=== PATIENT | female | born 1995 | race Caucasian/White ===

== ENCOUNTER → 2018-01-07 11:45 | Outpatient (CLI) | payer OTHER, SELFPAY ==
[2018-01-11 10:38] LABS: HPV Reflexed? NOT INDICATED
== END ==
PROVIDERS: Visit Provider Obstetrics & Gynecology
DX: Z12.4 Encounter for screening for malignant neoplasm of cervix (principal)
CPT/HCPCS: 88175; G0145

== ENCOUNTER → 2020-07-12 13:27 | Outpatient (CLI) | payer OTHER, SELFPAY ==
[2020-07-12 14:14] LABS: hCG Titer Quant., Serum 267 mIU/mL (1-3)
== END ==
PROVIDERS: PCP Family Medicine; Referring Provider Obstetrics & Gynecology; Visit Provider Obstetrics & Gynecology
DX: O02.1 Missed abortion (principal); Z3A.00 Weeks of gestation of pregnancy not specified
CPT/HCPCS: 36415; 84702; 86850; 86900; 86901

== ENCOUNTER → 2020-07-13 15:54 | Outpatient (CLI) | payer OTHER, SELFPAY ==
[2020-07-13 15:48] VITALS: BMI 25.6
[2020-07-13 16:45] LABS: hCG Titer Quant., Serum 212 mIU/mL (1-3)
== END ==
PROVIDERS: Nurse Practitioner Women's Health; PCP Family Medicine; Referring Provider Obstetrics & Gynecology; Visit Provider Obstetrics & Gynecology
DX: O20.0 Threatened abortion (principal); Z3A.00 Weeks of gestation of pregnancy not specified
CPT/HCPCS: 36415; 84702

== ENCOUNTER → 2020-07-15 09:55 | Outpatient (CLI) | payer OTHER, SELFPAY ==
[2020-07-13 15:48] VITALS: BMI 25.6
[2020-07-15 10:15] LABS: Absolute Lymphocyte Count 1.02 X10^3/uL (0.83-4.51); Absolute Neutrophil Count 5.2 X10^3/uL (2.0-7.7); Basophil# 0.02 X10^3/uL; Basophil% 0.3 % (0-1); Eosinophil# 0.07 X10^3/uL; Hematocrit 39.2 % (37-47); Hemoglobin 12.9 g/dL (12.0-15.0); Lymphocyte # 1.02 X10^3/ul (4.0); Lymphocyte % 14.7 % (19-41); Mean Corp Hgb Conc 32.9 g/dL (32-36); Mean Corpuscular Hgb 29.9 pg (27.0-32.0); Mean Platelet Vol. 9.5 fl (6.2-12.0); Monocyte# 0.59 X10^3/uL; Monocyte% 8.5 % (0-10); NRBC Flagged by Analyzer 0 % (0-5); Neutrophil # 5.21 X10^3/uL (2.7-7.7); Neutrophil % 75.4 % (47-70); Platelet Count 182 K/mm3 (150-450); RBC Distribution Width CV 12.1 % (11.6-14.6); RBC Distribution Width SD 40.7 fl (35.1-43.9); Red Blood Count 4.31 M/mm3 (4.2-5.4); White Blood Count 6.9 K/mm3 (4.4-11.0)
[2020-07-15 10:57] LABS: hCG Titer Quant., Serum 74 mIU/mL (1-3)
== END ==
PROVIDERS: Obstetrics & Gynecology; PCP Family Medicine; Referring Provider Nurse Practitioner Women's Health; Visit Provider Nurse Practitioner Women's Health
DX: O20.9 Hemorrhage in early pregnancy, unspecified (principal); Z3A.00 Weeks of gestation of pregnancy not specified
CPT/HCPCS: 36415; 84702; 85025

== ENCOUNTER → 2020-07-18 15:16 | Outpatient (CLI) | payer OTHER, SELFPAY ==
[2020-07-13 15:48] VITALS: BMI 25.6
[2020-07-18 16:43] LABS: hCG Titer Quant., Serum 17 mIU/mL (1-3)
== END ==
PROVIDERS: Nurse Practitioner Women's Health; PCP Family Medicine; Referring Provider Obstetrics & Gynecology; Visit Provider Obstetrics & Gynecology
DX: O03.9 Complete or unspecified spontaneous abortion without complication (principal)
CPT/HCPCS: 36415; 84702

== ENCOUNTER → 2021-06-01 | Outpatient (CLI) | payer BC, SELFPAY ==
[2021-06-01 19:49] LABS: Chlamydia Trachomatis by PCR Negative (Negative); Neisserai gonorrhoeae by PCR Negative (Negative); Probe Check PASS; Sample Adequacy Control PASS; Specimen Processing Control PASS
== END | disposition home or self-care (01) ==
LOC: LABSPEC 16:30
PROVIDERS: PCP Family Medicine; Visit Provider Obstetrics & Gynecology
DX: N97.9 Female infertility, unspecified (principal)
CPT/HCPCS: 87491; 87591

== ENCOUNTER → 2021-06-04 10:20 | Outpatient (CLI) | payer BC, SELFPAY ==
[2021-06-04 12:36] LABS: Progesterone Level 0.65 ng/mL (See Comment)
[2021-06-04 12:43] LABS: Hemoglobin A1c 4.8 % (3.8-5.6)
[2021-06-04 12:48] LABS: Cholesterol 114 mg/dL (200); High Density Lipoprotein 65 mg/dL; Prolactin 10.8 ng/mL; Thyroid Stim Hormone (TSH) 0.43 uIU/mL (0.358-3.74); Triglycerides 51 mg/dL; Very Low Density Lipoprotein 10 mg/dL (5-40)
[2021-06-05 20:20] LABS: Testosterone Free 1.4 pg/mL (0.0-4.2)
== END ==
PROVIDERS: PCP Family Medicine; Referring Provider Obstetrics & Gynecology; Visit Provider Obstetrics & Gynecology
DX: N97.9 Female infertility, unspecified (principal)
CPT/HCPCS: 36415; 80061; 82627; 83036; 84144; 84146; 84402; 84443; 82626

== ENCOUNTER → 2021-06-08 12:36 | Outpatient (CLI) | payer BC, SELFPAY ==
--- NOTE | 2021-06-08 12:41 | OP.PCM_ITS ---
Problems Associated Problem List Diagnoses (1) Secondary female infertility: Operative Report Date of Procedure: 06/08/21 Preop diagnosis: Infertility Postop diagnosis:Infertility , bilateral tubal patency Procedure: Hysterosalpingogram Surgeon:Rossana Parra DO Implantable devices: None Complications: None Findings: Bilateral tubal patency and normal uterine cavity Operative details: Patient was taken to the x-ray room and was placed on the x- ray table and was in the dorsal lithotomy position. Speculum was placed in the vagina and the cervix prepped with Betadine and the HSG catheter was easily introduced into the uterus and speculum removed. Radiologist was brought in and while pushing radiopaque dye into the uterus via the HSG catheter the radiologist took multiple images and views and confirmed bilateral tubal patency seen. No gross uterine filling defects or abnormalities were seen. All instruments removed from the vagina and the uterus without complication. Patient tolerated the procedure well. Multi Select Codes Urinary/Genital Urinary/Genital CPT Codes: 75700 HSG/SIS
--- NOTE | 2021-06-08 12:43 | RAD_ITS ---
STUDY: HYSTEROSALPINGOGRAM. REASON FOR EXAM: Female, 26 years old. INFERTILITY FLUOROSCOPY TIME (if supplied): ( 20 seconds ) minutes/seconds. 2 images were obtained. TECHNIQUE: Hysterosalpingogram. COMPARISON: None. FINDINGS: A hysterosalpingogram was performed by the meter tester primary. Imaging was submitted. The uterus is unremarkable. Both fallopian tubes are patent with spill. RAD/Salpingogram IMPRESSION: Normal hysterosalpingogram. Electronically Signed: Baljeet Huber MD at 13:19 EST , Service support ,
== END ==
PROVIDERS: PCP Family Medicine; Referring Provider Obstetrics & Gynecology; Visit Provider Obstetrics & Gynecology
DX: N97.9 Female infertility, unspecified (principal)
CPT/HCPCS: 58340; 74740; Q9967

== ENCOUNTER → 2021-06-11 10:37 | Outpatient (CLI) | payer BC, SELFPAY ==
--- NOTE | 2021-06-11 10:42 | US_ITS ---
STUDY: ULTRASOUND OF THE FEMALE PELVIS - COMPLETE REASON FOR EXAM: Female, 26 years old. Infertility LMP: 06/04/2021. TECHNIQUE: Transabdominal and Transvaginal TECHNICAL QUALITY: Adequate. COMPARISON: None. FINDINGS: The uterus is anteverted and is in a midline position. The uterus measures 7.1 cm x 4.8 cm x 3.4 cm. Normal uterine cervix. The endometrium measures 2.5 mm in thickness, and is hyperechoic. There is no demonstrated endometrial mass. There is no demonstrated myometrial mass. I.U.D. - The patient does not have an I.U.D. The right ovary is visualized. The right ovary measures 3.7 cm x 3.2 cm x 2.4 cm. Small follicles are seen within the ovary. There is no visualized right adnexal mass or complex lesion. There is normal arterial and normal venous vascularity. The left ovary is visualized. The left ovary measures 3.3 cm x 2.2 cm x 2.4 cm. Follicles are seen within the left ovary. There is no visualized left adnexal mass or complex lesion. There is normal arterial and normal venous vascularity. There is no fluid in the cul-de-sac. The pre void volume of the bladder was 580 ml. US/Pelvic (Non ) IMPRESSION: Small follicles are seen in both ovaries. Electronically Signed: Baljeet Huber MD at 15:42 EST , Service support ,
--- NOTE | 2021-06-11 10:42 | US_ITS ---
STUDY: ULTRASOUND OF THE FEMALE PELVIS - COMPLETE REASON FOR EXAM: Female, 26 years old. Infertility LMP: 06/04/2021. TECHNIQUE: Transabdominal and Transvaginal TECHNICAL QUALITY: Adequate. COMPARISON: None. FINDINGS: The uterus is anteverted and is in a midline position. The uterus measures 7.1 cm x 4.8 cm x 3.4 cm. Normal uterine cervix. The endometrium measures 2.5 mm in thickness, and is hyperechoic. There is no demonstrated endometrial mass. There is no demonstrated myometrial mass. I.U.D. - The patient does not have an I.U.D. The right ovary is visualized. The right ovary measures 3.7 cm x 3.2 cm x 2.4 cm. Small follicles are seen within the ovary. There is no visualized right adnexal mass or complex lesion. There is normal arterial and normal venous vascularity. The left ovary is visualized. The left ovary measures 3.3 cm x 2.2 cm x 2.4 cm. Follicles are seen within the left ovary. There is no visualized left adnexal mass or complex lesion. There is normal arterial and normal venous vascularity. There is no fluid in the cul-de-sac. The pre void volume of the bladder was 580 ml. US/Transvaginal Non- IMPRESSION: Small follicles are seen in both ovaries. Electronically Signed: Baljeet Huber MD at 15:42 EST , Service support ,
== END ==
PROVIDERS: PCP Family Medicine; Referring Provider Obstetrics & Gynecology; Visit Provider Obstetrics & Gynecology
DX: N97.9 Female infertility, unspecified (principal)
CPT/HCPCS: 76830; 76856

== ENCOUNTER 2021-11-18 16:41 | Inpatient (IN) | payer BC, SELFPAY ==
[2021-11-18] VITALS (10 sets, daily range): BP systolic 91–147; BP diastolic 47–92; PULSE 60–121; RESP 16–20; TEMP 36.8–37.1; O2SAT 97–100; BMI 26.5; BMI 28.2
--- NOTE | 2021-11-18 16:59 | ED.VIS.GI ---
HPI HPI - GI History of Present Illness Chief Complaint: Abd Pain Informant: patient Abdominal Pain/Flank Pain Onset: Hours (2-3) Context: Sudden Onset Timing: Continuous Quality: Aching Location: - (Across lower abdomen a little worse on the left) Current Severity: Severe Maximum Severity: Severe Worsened by: Movement Relieved by: Nothing Nausea/Vomiting/Emesis GI Symptom: Positive for Nausea; Negative for Vomiting Diarrhea/Melena/Hematochezia GI Symptom: Negative for Diarrhea, Melena and Hematochezia Associated Symptoms Associated Symptoms: Negative for Dysuria, Frequency and Hematuria Narrative Narrative: Patient had been feeling fine today, she was getting a shower and started having lower abdominal pain suddenly severe. No radiation into the back. No urinary symptoms. Some nausea but no vomiting. No history of any abdominal surgeries. No history of ovarian cyst that she knows of. States she has had her period for the past month which is abnormal for her. [facility] Medical History Chronic urinary tract infection Genital herpes Home Medications valacyclovir 500 mg tablet 500 mg PO DAILY PRN 07/26/20 [History Last Taken Unknown] clomiphene citrate 50 mg tablet 50 mg PO DAILY 5 Days #5 tab 10/25/21 [Rx Last Taken Unknown] Allergy/AdvReac Type Severity Reaction Status Date / Time No Known Allergies Allergy Verified 11/18/21 16:43 Family History Grandmother Diabetes Heart disease Surgical History S/P bunionectomy Social History Smoking Status: Current every day smoker tobacco type: e-cigarettes Smokeless tobacco user: other Electronic Cigarette Use: with nicotine alcohol intake: current details: occasionally substance use type: does not use caffeine: Yes what type of physical activity do you participate in: none seatbelt use: always do you feel safe at home: Yes additional social history: Boyfriend-Zeeshan Patient works at [employer] ED Constitutional Constitutional ED: Denies chills or fever(s) Eyes Eyes: Denies change in vision or diplopia ENT ENT ED: Denies rhinorrhea or sore throat Cardiovascular Cardiovascular: Denies chest pain or palpitations Respiratory/Chest Respiratory/Chest: Denies cough or dyspnea Gastrointestinal Gastrointestinal: Reports abdominal pain and nausea; Denies diarrhea or vomiting Genitourinary Genitourinary ED: Denies dysuria or hematuria Musculoskeletal Musculoskeletal: Denies back pain or neck pain Integumentary Denies abscess or rash Neurologic Neurologic: Denies headache(s), paresthesias or weakness Psychiatric Psychiatric: Denies anxiety or suicidal thoughts EXAM Physical Exam Const Vital Signs: 11/18/21 16:42 11/18/21 17:33 11/18/21 17:46 Temperature 98.3 F 98.4 F Temperature Source Temporal Oral Pulse Rate 97 60 Respiratory Rate 16 18 Blood Pressure 136/84 H 107/64 91/47 L Blood Pressure Mean 101 78 61 Pulse Ox 100 100 Oxygen Delivery Method Room Air Room Air 11/18/21 19:00 Temperature Temperature Source Pulse Rate Respiratory Rate 17 Blood Pressure Blood Pressure Mean Pulse Ox Oxygen Delivery Method Room Air Positive well nourished and well developed Constitutional Narrative: In mild acute painful distress General Appearance ED: cooperative and well developed HEENT Reports moist mucous membranes normocephalic and atraumatic Eyes PERRL and EOMs intact bilaterally Neck full ROM and supple Resp normal respiratory effort and clear to auscultation bilaterally Cardio regular rate, regular rhythm and no murmurs GI non-distended GI Narrative: Tender with voluntary guarding in the left lower and upper quadrants. Otherwise, less tender suprapubic and right lower quadrants. No rebound tenderness. Nondistended. Auscultation: normoactive bowel sounds Palpation: soft Back/Spine no CVA tenderness General Back: other FROM Extremity normal to inspection General Extremety ED: Negative for edema, pulses abnormal or tenderness General Extremity: Negative for edema or pulses abnormal Neuro oriented x3, CN's II-XII intact bilaterally and no sensory deficits noted Sensorium / Orientation: awake and alert Motor Exam: strength 5/5 throughout Skin no rashes or lesions noted and no wounds MDM MDM MDM Narrative Medical decision making narrative: Initial labs were unremarkable, her qualitative test returned positive so instead of a CT, although ultrasound is not here today, they were paged emergently, as my concern now especially since the patient dropped her blood pressure from 136/84 to 91/47 is a ruptured ectopic . She has Clomid on her list of medications but she states she has not taken/started it yet. Also discussed with Dr. Montesinos, industrial machine system technician on-call for Dr. Ramey. Discussed my concern for ectopic . I did add a quantitative hCG, came back over 4000 and the tech called me from the ultrasound suite saying that her ultrasound is consistent with an acutely ruptured ectopic . Her blood type is A-. Discussed with OB, patient to go to operating room. RhoGAM ordered to be given prior. Lab Data Attestation: I reviewed the patient's lab results. Labs: Laboratory Results - last 24 hr 11/18/21 11/18/21 11/18/21 17:15 17:15 17:15 WBC 11.0 RBC 3.62 L Hgb 11.1 L Hct 33.1 L MCV 91.4 MCH 30.7 MCHC 33.5 RDW Std Deviation 40.7 RDW Coeff of Annabelle 12.2 Plt Count 209 MPV 9.6 Immature Gran % (Auto) 0.500 Neut % (Auto) 84.5 H Lymph % (Auto) 8.8 L Erie % (Auto) 5.6 Eos % (Auto) 0.5 Baso % (Auto) 0.1 Absolute Neuts (auto) 9.3 H Absolute Lymphs (auto) 0.96 Nucleated RBC % 0 Sodium 139 Potassium 3.9 Chloride 111 H Carbon Dioxide 23.0 Anion Gap 5 BUN 15 Creatinine 0.88 Estim Creat Clear Calc 77.29 Est GFR (MDRD) Af Amer 101 Est GFR (MDRD) Non-Af 83 BUN/Creatinine Ratio 17.1 Glucose 96 Calcium 8.6 HCG, Quant Serum , Qual POSITIVE H Urine Color Urine Clarity Urine pH Ur Specific Rangely Urine Protein Urine Glucose (UA) Urine Ketones Urine Occult Blood Urine Nitrite Urine Bilirubin Urine Urobilinogen Ur Leukocyte Esterase Urine RBC Urine WBC Ur Squamous Epith Cells Urine Bacteria Urine Mucus 11/18/21 11/18/21 17:15 17:28 WBC RBC Hgb Hct MCV MCH MCHC RDW Std Deviation RDW Coeff of Annabelle Plt Count MPV Immature Gran % (Auto) Neut % (Auto) Lymph % (Auto) Erie % (Auto) Eos % (Auto) Baso % (Auto) Absolute Neuts (auto) Absolute Lymphs (auto) Nucleated RBC % Sodium Potassium Chloride Carbon Dioxide Anion Gap BUN Creatinine Estim Creat Clear Calc Est GFR (MDRD) Af Amer Est GFR (MDRD) Non-Af BUN/Creatinine Ratio Glucose Calcium HCG, Quant 4540 H Serum , Qual Urine Color Yellow Urine Clarity Sl. Cloudy Urine pH 6.0 Ur Specific Rangely 1.025 Urine Protein 30 H Urine Glucose (UA) Normal Urine Ketones 5 H Urine Occult Blood 250 H Urine Nitrite Negative Urine Bilirubin Negative Urine Urobilinogen Normal Ur Leukocyte Esterase 25 H Urine RBC 25-50 SEEN Urine WBC 0 SEEN Ur Squamous Epith Cells 0-5 SEEN Urine Bacteria RARE Urine Mucus 0 SEEN Critical Care Time Critical Care Time: Yes Critical care time (excluding procedures): 30-74 minutes (35 min), Including time spent:, Discussing w/Patient &/or Family/Environmental Geologist, Discussing w/Consultants, Arranging Admission or Transfer and Performing Direct Patient Care at Bedside Discharge Plan Dx/Rx/DC Orders Clinical Impression: Ruptured ectopic Disposition Disposition: Acute Care [facility]
[2021-11-18 17:20] LABS: Absolute Lymphocyte Count 0.96 X10^3/uL (0.83-4.51); Absolute Neutrophil Count 9.3 X10^3/uL (2.0-7.7); Basophil# 0.01 X10^3/uL; Basophil% 0.1 % (0-1); Eosinophil# 0.06 X10^3/uL; Eosinophils% 0.5 % (0-5); Hematocrit 33.1 % (37-47); Hemoglobin 11.1 g/dL (12.0-15.0); Lymphocyte # 0.96 X10^3/ul (0.83-4.51); Lymphocyte % 8.8 % (19-41); Mean Corp Hgb Conc 33.5 g/dL (32-36); Mean Corpuscular Hgb 30.7 pg (27.0-32.0); Mean Corpuscular Volume 91.4 fL (81-99); Mean Platelet Vol. 9.6 fl (6.2-12.0); Monocyte# 0.61 X10^3/uL; Monocyte% 5.6 % (0-10); NRBC Flagged by Analyzer 0 % (0-5); Neutrophil # 9.26 X10^3/uL (2.7-7.7); Neutrophil % 84.5 % (47-70); Platelet Count 209 K/mm3 (150-450); RBC Distribution Width CV 12.2 % (11.6-14.6); RBC Distribution Width SD 40.7 fl (35.1-43.9); Red Blood Count 3.62 M/mm3 (4.2-5.4)
[2021-11-18 17:33] LABS: Anion Gap 5 (5-15); BUN 15 mg/dL (7-18); BUN/Creat Ratio 17.1 RATIO (10-20); Calcium,Total 8.6 mg/dL (8.5-10.1); Chloride 111 mmol/L (98-107); Creatinine, Serum 0.88 mg/dL (0.55-1.02); EST Glomerular Filtration Rate 83 mL/min (>60); Est Glom Filt Rate - Afr Amer 101 mL/min (>60); Estimated Creatinine Clearance 77.29 ml/min; Glucose 96 mg/dL (74-106); Potassium 3.9 mmol/L (3.5-5.1); Sodium Level 139 mmol/L (136-145)
[2021-11-18 17:33] LABS: Mucous, Urine 0 SEEN /hpf (<or=2+); White Blood Cells 0 SEEN /hpf (0-5)
[2021-11-18 17:34] LABS: Color, Urine Yellow (Yellow); Glucose, Dipstick Normal (Normal); Ketone-Dipstick 5 mg/dl (Negative); Leukocyte Esterase-Dipstick 25 /ul (Negative); Nitrite-Dipstick Negative (Negative); Occult Blood-Urine 250 /ul (Negative); Protein-Dipstick 30 mg/dl (Negative); Specific Gravity, Urine 1.025 (1.002-1.030); Urine Bilirubin Dipstick Negative (Negative); Urine Clarity Sl. Cloudy (Clear); Urine Urobilinogen Normal (Normal)
[2021-11-18 17:44] LABS: Bacteria RARE /hpf (None Seen); Red Blood Cells-Urine 25-50 SEEN /hpf (0-5); Squamous Epithelial Cells - UA 0-5 SEEN /hpf (5-10)
[2021-11-18] MEDS: Ondansetron 4 MG/2 ML Vial IV (17:48)
[2021-11-18] MEDS: 0.9% Normal Saline 1,000 ML 1000 ML IV (17:48)
[2021-11-18 17:57] LABS: Internal QC Validated? YES +Cl - CLEAR BKGD; Pregnancy, Serum, hCG Quali. POSITIVE Negative
--- NOTE | 2021-11-18 18:02 | US_ITS ---
We are attempting to reach an attending provider to discuss findings. An addendum with communication details will be sent when the communication is complete. EXAM: US , TRANSVAGINAL CLINICAL INDICATION: LLQ PAIN - POSITIVE QUANT TECHNIQUE: Real-time transvaginal obstetrical ultrasound of the maternal pelvis and a first trimester with image documentation. Transvaginal imaging was used for better evaluation of the fetus and adnexa. This report was created using [employer] report generation technology. COMPARISON: None. FINDINGS: GESTATION: Uterus is normal in size and echogenicity measuring 8.5 x 3.9 x 4.4 cm. Endometrial thickness is normal measuring 3 mm. No intrauterine gestational sac. UTERUS/CERVIX: No myometrial mass. OVARIES: Right ovary measures 5.7 x 3.8 x 4.1 cm. No mass or dominant cyst. Heterogeneous left adnexal lesion measures 10 x 5 x 7.9 cm. No definite ovary is seen. FREE FLUID: Moderate free fluid in the cul-de-sac. US/Transvaginal w/Preg US IMPRESSION: 1. No intrauterine gestational sac, of unknown location. 2. Large left ovarian lesion, concerning for possible ectopic . 3. Moderate free fluid. Electronically Signed: Benita Richards MD at 21:15 EDT Reading Location ID and State: [id number] / Tel , Service support ,
[2021-11-18] MEDS: fentaNYL 100 MCG/2 ML Ampul 50 MCG IV (18:16)
[2021-11-18] MEDS: 0.9% Normal Saline 1,000 ML 999 ML IV (18:38)
[2021-11-18 19:03] LABS: hCG Titer Quant., Serum 4540 mIU/mL (1-3)
--- NOTE | 2021-11-18 19:47 | PCM.HP.OB ---
HPI - General HPI Narrative SHAHZAD HERRERA, is a 26 y/o G0 F who presents to the ER with llq pain. She has a h/o unexplained infertility and was about to start taking clomid but was bleeding for a month straight. Her quant level in ER came back at 4500 and ultrasound showed evidence of possible ruptured ectopic. We discussed the risks, benefits, and alternatives to surgery and she agrees to proceed with emergent surgery [facility] Medical History (Updated 11/18/21 @ 19:[address] Rossana Parra DO) Chronic urinary tract infection Genital herpes Home Medications valacyclovir 500 mg tablet 500 mg PO DAILY PRN 07/26/20 [History Last Taken Unknown] clomiphene citrate 50 mg tablet 50 mg PO DAILY 5 Days #5 tab 10/25/21 [Rx Last Taken Unknown] Allergy/AdvReac Type Severity Reaction Status Date / Time No Known Allergies Allergy Verified 11/18/21 16:43 Family History Grandmother Diabetes Heart disease Surgical History (Updated 11/18/21 @ 19:26 by Rosanne Duran) History of placement of ear tubes S/P bunionectomy Social History Smoking Status: Current every day smoker tobacco type: e-cigarettes Smokeless tobacco user: other Electronic Cigarette Use: with nicotine alcohol intake: current details: occasionally substance use type: does not use caffeine: Yes what type of physical activity do you participate in: none seatbelt use: always do you feel safe at home: Yes additional social history: Boyfriend-Zeeshan Patient works at [employer] History 1 Elective abortions Hx Para 0 Spontaneous abortions 1 Hx # Term Pregnancies Ectopic pregnancies Hx # Pregnancies Multiple births # of living children ROS Constitutional Constitutional: Denies change in weight, chills, fatigue, fever(s), headache(s), poor appetite or weakness Eyes Eyes: Denies blurry vision, change in vision, seeing flashes or spots in vision ENT HEENT: Denies dizziness, headache(s), loss taste/smell or sore throat Cardiovascular Cardiovascular: Denies chest pain, dizziness, dyspnea, irregular heart rhythm, leg edema, palpitations, rapid heart rate or vomiting Respiratory/Chest Respiratory/Chest: Denies chest tightness, cough, dyspnea or breast pain Gastrointestinal Gastrointestinal: Denies abdominal pain, anorexia, constipation, cramping, diarrhea, hemorrhoids, vomiting or weight changes Genitourinary Genitourinary: Denies dysuria, flank pain, genital lesions, genital pain, urinary frequency or urinary urgency Musculoskeletal Musculoskeletal: Denies back pain, difficulty walking, joint pain, limited range of motion, muscle cramps or numbness Integumentary Integumentary: Denies lesions or unusual bruising Neurologic Neurologic: Denies abnormal movements, abnormal speech, dizziness, numbness, seizure-like activity or syncope Psychiatric Psychiatric: Denies anxiety, behavioral changes, change in appetite, change in libido, cognitive impairment, confusion, depression, difficulty concentrating, hallucinations or suicidal thoughts Endocrine Endocrinology: Denies excessive sweating, polydipsia or polyuria Hematologic/Lymphatic Hematologic/Lymphatic: Denies easy bleeding, easy bruising or lymphadenopathy Allergic/Immunologic Allergic/Immunologic: Denies itchy eyes, lip swelling, seasonal rhinorrhea, rhinitis, throat swelling, tongue swelling, eczemia, wheezing or asthma Vital Signs Vital Signs Vital Signs: 11/18/21 16:42 11/18/21 17:33 11/18/21 17:46 Temperature 98.3 F 98.4 F Temperature Source Temporal Oral Pulse Rate 97 60 Respiratory Rate 16 18 Blood Pressure 136/84 H 107/64 91/47 L Blood Pressure Mean 101 78 61 Blood Pressure Source Blood Pressure Position Blood Pressure Location Pulse Ox 100 100 Oxygen Delivery Method Room Air Room Air 11/18/21 19:00 11/18/21 19:18 Temperature 98.5 F Temperature Source Oral Pulse Rate 82 Respiratory Rate 17 18 Blood Pressure 140/62 H Blood Pressure Mean 88 Blood Pressure Source Monitor Blood Pressure Position Semi-Fowlers Blood Pressure Location Right Arm Pulse Ox 98 Oxygen Delivery Method Room Air Room Air Weight Weight: 145 lb Body Mass Index (BMI) 26.5 Physical Exam Const alert, oriented x3, no apparent distress and healthy appearing General Appearance: cooperative; Negative for anxious HEENT normocephalic Face and Sinus: normal facial exam Eyes EOMs intact bilaterally and no scleral icterus General Eye: normal appearance of both eyes Neck full ROM and supple Lymph Lymphatic: no lymphadenopathy noted Chest Chest: abnormal inspection of the chest Resp normal respiratory effort Effort and Inspection: able to speak in complete sentences Cardio regular rate GI non-tender Palpation: soft, tender and guarding Back/Spine no CVA tenderness Extremity normal to inspection, full ROM and no clubbing, cyanosis or edema General Extremity: Negative for calf tenderness or edema Skin Lesions: no lesions Rashes: no rashes Psych mental status grossly normal Labs Labs Labs: Blood Type A NEGATIVE Antibody Screen NEGATIVE Hct 33.1 % (37-47) L Hgb 11.1 g/dL (12.0-15.0) L Obstetrics US Miscellaneous Test Assessment & Plan (1) Ectopic : (2) Rh negative status during : QUALIFIERS: Trimester: first trimester Qualified Code(s): O26.891 - Other specified related conditions, first trimester; Z67.91 - Unspecified blood type, Rh negative COMMENT: Enrique 07/13/20 PLAN: plan for emergent diagnostic laparoscopy, possible left salpingectomy
--- NOTE | 2021-11-18 20:04 | PCM.DC ---
Discharge Instructions Diet Discharge Diet: No restrictions Activity Discharge Activity: Return to Normal Activity, May Not Drive (for two weeks or while taking narcotic pain medications.), May Shower and May Take a Tub Bath (in 7 days) May resume sexual activity in: 1 week Weight Bearing Status: Full weight bearing Dressing / Incision Call your doctor if you observe: Using more than 1 pad per hour, Shortness of breath, Chest pain and Uncontrolled pain Suture Line Care: Avoid Pulling/Pushing and Avoid Pinching/Bending Remove Dressing in: 1 week (if present) Cleanse incision/area with: Soap & Water and Keep Dressing Clean & Dry Follow Up Care Please Follow Up With: Rossana Parra DO When: Call to make an appointment with your doctor for a follow up incision check in 1-2 weeks. Test Results: Test results from this visit will be discussed in further detail at your follow-up appointment, if applicable. Discharge Plan Admission Attending Provider: Rossana Parra Primary Care Provider: Devyn Lee Instructions Patient Instructions: After Laparoscopic Treatment ... Discharge Orders/Prescriptions Prescriptions: New ibuprofen 800 mg tablet 800 mg PO Q8H PRN (Reason: pain) 7 Days Qty: 30 RF: 0 oxycodone-acetaminophen [Percocet] 5-325 mg tablet 1 tab PO Q4H PRN (Reason: pain) 7 Days Qty: 20 RF: 0 Continued valacyclovir [Valtrex] 500 mg tablet 500 mg PO DAILY PRN (Reason: Herpes ) RF: 0 Discontinued clomiphene citrate 50 mg tablet 50 mg PO DAILY 5 Days Qty: 5 RF: 2 Referrals / Follow Up: Devyn Lee MD [Primary Care Provider] - Disposition Disposition (needs filled in before D/C Order can be placed): Home, Self Care
--- NOTE | 2021-11-18 20:30 | FAL_PTH ---
PATIENT: SHAHZAD FITZGERALD LOC: [facility] U#:[id number] AGE/SX: 26/ ROOM: MS321 RE11/18/[address]: Dr. Rossana Parra DO : 1995 BED: 1 DIS: 11/19/2021 SPEC #: [id number] RECD: 11/19/21 07:46 STATUS: DELIA BOB #: [id number] FORTUNATO: 11/18/21 20:[address]: Rossana Parra DEPT: SURGICAL PATHOLOGY RECD BY: Gayatri Thrasher ENTERED: 11/19/21 08:38 SP TYPE: ECTOPIC OTHR DR: Dr. Devyn Lee MD Tissues: ECTOPIC PREG Procedures: Surgery Specimen Level IV HEADER OPERATION: Laparoscopic left salpingectomy, removal ectopic PRE-OP DIAGNOSIS: Ectopic TISSUE SUBMITTED: Left fallopian tube and ectopic MICROSCOPIC DIAGNOSIS Left fallopian tube and ectopic , salpingectomy: Fallopian tube with decidua and immature chorionic villi (ectopic ). ARIANNA:yasmin 11/20/2021 MICROSCOPIC DESCRIPTION Slides are reviewed. GROSS DESCRIPTION Received in fixative is one container labeled with the patient's name and designated left fallopian tube and ectopic . The specimen consists of a fallopian tube measuring 5 cm in length and up to 1.5 cm in diameter. The fimbrial end is identified. Sections reveal the lumen contains hemorrhagic soft tissue. Obvious tissue is not identified. Also present in the container are multiple fragments of hemorrhagic soft tissue measuring in aggregate 1 x 1 x 0.1 cm. The entire specimen is submitted in four cassettes. / ARIANNA:yasmin 11/19/2021 TC:5 CPT: 87082
[2021-11-18] MEDS: Bupivacaine 0.25% 30 ML Vial (20:45)
[2021-11-18] MEDS: Lactated Ringers 1,000 ML 15 ML IV ×2 (21:00→22:10)
--- NOTE | 2021-11-18 21:22 | PCM.OPRPT ---
Problems Associated Problem List Diagnoses (1) Ectopic : (2) Rh negative status during : (3) Ruptured ectopic : Report of Operation Date of Procedure: 11/18/21 Pre-Operative Diagnosis: ruptured left adnexal ectopic Post-Operative Diagnosis: ruptured left fallopian tube ectopic Surgery/Procedure Performed:: laparoscopic evacuation of blood and removal of left ectopic via salpingectomy Description of Surgical Findings:: left fallopian tube ruptured ectopic. 1600cc of blood in the pelvis. endometriosis Surgeon: Rossana Parra marketing administrative assistant: Skylar Jones Type of Anesthesia: General Specimen's removed: left fallopian tube and ectopic Estimated Blood Loss (mL): 1600cc Description of Procedure: Patient was brought to the operating room after a ultrasound suspected left adnexal ectopic . General anesthesia was found to be adequate she was prepped and draped in normal sterile fashion she was placed central spine position with the legs in stirrups. A weighted speculum was placed in the vagina and the anterior lip of the cervix was grasped with single-tooth tenaculum the uterus was sounded to 7 cm and a uterine ZUMI manipulator was placed without difficulty. The bladder was drained of approximately 25 cc of urine. Gloves were changed and attention was turned towards the abdomen. An infraumbilical skin incision was made with a scalpel after quarter percent Marcaine with lidocaine was injected. A 5 mm incision was made with 11 blade scalpel. A 5 mm trocar was inserted into the abdomen under direct visualization. There is noted to be a large amount of blood in the pelvis and in the upper and left abdominal quadrants. Left and right 5 mm trochars was inserted into the abdomen under direct visualization Suction of approximately 1400 cc of blood was performed. An additional 2 to 300 cc was undertaken unobtainable due to loops of bowel and omentum obscuring the upper quadrants. The uterus was elevated and the left adnexa was noted to be in large it was noted at this site to be the ectopic . The fallopian tube was grasped and the underlying mesosalpinx was cauterized and cut to the level of the cornua using the LigaSure device. The ectopic was placed into the Endo Catch bag and removed through the 5 mm trocar site without difficulty. Further suction of blood was performed. There was noted to be a moderate amount of endometriosis adherent from the left ovary to the left pelvic sidewall there was noted to be a trace amount of endometriosis noted on the right side as well. The left fallopian tube was found to be free without signs of endometriosis over lying it. There were no signs of adhesions over the liver. There were some powder burn kenny in the cul-de-sac and on the uterosacral ligaments. After complete survey of the abdomen was performed the decision was made to end the procedure. The trochars were removed from the abdomen and CO2 gas escape the abdomen. The skin incision sites were closed using a Monocryl suture. The uterine manipulator was removed without difficulty. The patient tolerated the procedure well. Sponge lap needle counts were correct x2 the patient is now being brought to the recovery room in stable condition Complications none Admit VTE Documentation VTE Present on Admission: Yes VTE Mechan Device Prophylaxis: SCD's VTE Pharm Prophylaxis ordered?: No
[2021-11-18 22:27] LABS: Absolute Lymphocyte Count 0.74 X10^3/uL (0.83-4.51); Eosinophil# 0.01 X10^3/uL; Eosinophils% 0.1 % (0-5); Hematocrit 23.1 % (37-47); Hemoglobin 7.7 g/dL (12.0-15.0); Lymphocyte # 0.74 X10^3/ul (0.83-4.51); Lymphocyte % 10.3 % (19-41); Mean Corp Hgb Conc 33.3 g/dL (32-36); Mean Corpuscular Hgb 30.7 pg (27.0-32.0); Mean Platelet Vol. 9.2 fl (6.2-12.0); Monocyte# 0.42 X10^3/uL; Monocyte% 5.9 % (0-10); NRBC Flagged by Analyzer 0 % (0-5); Neutrophil # 5.95 X10^3/uL (2.7-7.7); Neutrophil % 83.3 % (47-70); Platelet Count 139 K/mm3 (150-450); RBC Distribution Width CV 12.3 % (11.6-14.6); RBC Distribution Width SD 41.4 fl (35.1-43.9); Red Blood Count 2.51 M/mm3 (4.2-5.4); White Blood Count 7.2 K/mm3 (4.4-11.0)
[2021-11-18] MEDS: Acetaminophen 325 MG Tablet PO (22:41)
[2021-11-18] MEDS: oxyCODONE 5 MG Tablet PO (22:42)
[2021-11-19] VITALS (11 sets, daily range): BP systolic 89–110; BP diastolic 43–70; PULSE 73–88; RESP 16–18; TEMP 36.3–37; O2SAT 95–100
[2021-11-19] MEDS: Ibuprofen 600 MG Tablet PO ×3 (01:41→16:46)
[2021-11-19] MEDS: HYDROcodone Bitartrate/Apap 5/325 Tablet PO ×3 (04:18→18:38)
[2021-11-19] MEDS: Lactated Ringers 1,000 ML 100 ML IV (04:47)
[2021-11-19 06:25] LABS: Absolute Lymphocyte Count 1.28 X10^3/uL (0.83-4.51); Absolute Neutrophil Count 3.8 X10^3/uL (2.0-7.7); Eosinophil# 0.05 X10^3/uL; Eosinophils% 0.9 % (0-5); Hematocrit 19.7 % (37-47); Hemoglobin 6.5 g/dL (12.0-15.0); Lymphocyte # 1.28 X10^3/ul (0.83-4.51); Lymphocyte % 22.8 % (19-41); Mean Corpuscular Hgb 30.7 pg (27.0-32.0); Mean Corpuscular Volume 92.9 fL (81-99); Mean Platelet Vol. 9.9 fl (6.2-12.0); Monocyte# 0.47 X10^3/uL; Monocyte% 8.4 % (0-10); NRBC Flagged by Analyzer 0 % (0-5); Neutrophil # 3.78 X10^3/uL (2.7-7.7); Neutrophil % 67.4 % (47-70); Platelet Count 138 K/mm3 (150-450); RBC Distribution Width CV 12.6 % (11.6-14.6); Red Blood Count 2.12 M/mm3 (4.2-5.4); White Blood Count 5.6 K/mm3 (4.4-11.0)
[2021-11-19] MEDS: Morphine 2 MG/ML Syringe IV (08:50)
--- NOTE | 2021-11-19 09:25 | CASEMGMT ---
BRANDEN DEUTSCH Assessment: Face to Face with pt for initial transition planning/care coordination assessment. RN LA NENA introduced self and role at [facility], pt voices understanding and consents to assessment. Pt is A/O x4 and answers all questions appropriately at this time. Pt lying in bed with eyes closed and asks questions to be asked of her mother who is at bedside. Assessment completed with both pt and mother input. Care providers, pharmacy, and demographics verified/updated. Admitting Dx: ectopic PCP:Jesus Specialists:Kelsey ARTIST MANNEQUIN COLORING [facility]erred [facility]acy[facility] Insurance: Decker Prescription Benefit: yes LW/HPOA: Pt denies having a LW/DPOA and denies need for info regarding AD. LNOK: Trisha March, mother Living Arrangements: Pt lives with fiance in a single story house with 3 steps to enter. Pt mother reports that pt is I in ADL's. Pt denies concerns at home. Transportation: Pt drives self and denies concerns with transportation. DME/HHC/SNF: Pt denies having any DME in the home, hx of HHC or SNF stays. Pt states no concerns with going home at time of dc. Pt states no further concerns/needs. CM to follow. Advised pt to ask CM if any further question/concerns/needs arise, voices understanding. Pt Goal: Home Plan: Home
--- NOTE | 2021-11-19 13:30 | PCM.PN.OB ---
Subjective Subjective pt is laying in bed and complains of still having abdominal/ pelvic pain. She denies vaginal bleeding. She she states that she feels fatigued but no dizziness or shortness of breath with resting. BP is low and pulse is high suggesting anemia. Objective Data Objective Data Vital Signs: Vital Signs Temp Pulse Resp BP Pulse Ox 98.0 F 79 18 102/70 100 11/19/21 12:45 11/19/21 12:45 11/19/21 12:45 11/19/21 12:45 11/19/21 12:45 Oxygen Delivery Method Room Air Weight: 154 lb 6.4 oz Body Mass Index (BMI) 28.2 Intake & Output: Intake and Output for Last 24 Hours 11/17/21 11/18/21 11/19/21 23:59 23:59 23:59 Intake Total 3000 / 3000 900 / 900 Output Total 500 / 500 Balance 2975 / 2975 400 / 400 Lab / Micro Data Result Diagrams: 11/19/21 05:45 11/18/21 17:15 Labs: Laboratory Results - last 24 hr 11/18/21 17:15: WBC 11.0, RBC 3.62 L, Hgb 11.1 L, Hct 33.1 L, MCV 91.4, MCH 30.7, MCHC 33.5, RDW Std Deviation 40.7, RDW Coeff of Annabelle 12.2, Plt Count 209, MPV 9.6, Immature Gran % (Auto) 0.500, Neut % (Auto) 84.5 H, Lymph % (Auto) 8.8 L, [place] % (Auto) 5.6, Eos % (Auto) 0.5, Baso % (Auto) 0.1, Absolute Neuts (auto) 9.3 H, Absolute Lymphs (auto) 0.96, Nucleated RBC % 0 11/18/21 17:15: Sodium 139, Potassium 3.9, Chloride 111 H, Carbon Dioxide 23.0, Anion Gap 5, BUN 15, Creatinine 0.88, Estim Creat Clear Calc 77.29, Est GFR (MDRD) Af Amer 101, Est GFR (MDRD) Non-Af 83, BUN/Creatinine Ratio 17.1, Glucose 96, Calcium 8.6 11/18/21 17:15: Serum , Qual POSITIVE H 11/18/21 17:15: HCG, Quant 4540 H 11/18/21 17:28: Urine Color Yellow, Urine Clarity Sl. Cloudy, Urine pH 6.0, Ur Specific [place] 1.025, Urine Protein 30 H, Urine Glucose (UA) Normal, Urine Ketones 5 H, Urine Occult Blood 250 H, Urine Nitrite Negative, Urine Bilirubin Negative, Urine Urobilinogen Normal, Ur Leukocyte Esterase 25 H, Urine RBC 25-50 SEEN, Urine WBC 0 SEEN, Ur Squamous Epith Cells 0-5 SEEN, Urine Bacteria RARE, Urine Mucus 0 SEEN 11/18/21 18:20: Blood Type A NEGATIVE 11/18/21 18:20: Blood Type A NEGATIVE, Antibody Screen NEGATIVE, Crossmatch See Detail 11/18/21 21:55: WBC Cancelled, Corrected WBC Cancelled, RBC Cancelled, Hgb Cancelled, Hct Cancelled, MCV Cancelled, MCH Cancelled, MCHC Cancelled, RDW Std Deviation Cancelled, RDW Coeff of Annabelle Cancelled, Plt Count Cancelled, MPV Cancelled, Immature Gran % (Auto) Cancelled, Neut % (Auto) Cancelled, Lymph % (Auto) Cancelled, [place] % (Auto) Cancelled, Eos % (Auto) Cancelled, Baso % (Auto) Cancelled, Absolute Neuts (auto) Cancelled, Absolute Lymphs (auto) Cancelled, Total Counted Cancelled, Neutrophils % (Manual) Cancelled, Band Neutrophils % Cancelled, Lymphocytes % (Manual) Cancelled, Monocytes % (Manual) Cancelled, Eosinophils % (Manual) Cancelled, Basophils % (Manual) Cancelled, Metamyelocytes % Cancelled, Myelocytes % Cancelled, Promyelocytes % Cancelled, Blast Cells % Cancelled, Plasma Cell % (Manual) Cancelled, Other Cells % Cancelled, Nucleated RBC % Cancelled, Nucleated RBCs/100 WBC Cancelled, Differential Comment Cancelled, Diff Path Review Cancelled, Hypersegmented Neuts Cancelled, Atypical Lymphocytes Cancelled, Reactive Lymphocytes Cancelled, Smudge Cells Cancelled, Toxic Granulation Cancelled, Toxic Vacuolation Cancelled, Dohle Bodies Cancelled, Bhavya Rods Cancelled, Platelet Estimate Cancelled, Plt Morphology Comment Cancelled, RBC Morphology Cancelled, Polychromasia Cancelled, Hypochromasia Cancelled, Poikilocytosis Cancelled, Basophilic Stippling Cancelled, Anisocytosis Cancelled, Microcytosis Cancelled, Macrocytosis Cancelled, Spherocytes Cancelled, Sickle Cells Cancelled, Target Cells Cancelled, Tear Drop Cells Cancelled, Ovalocytes Cancelled, Stomatocytes Cancelled, [place] Bodies Cancelled, [place] Cells Cancelled, Bite Cells Cancelled, Crenated Cell Cancelled, Acanthocytes (Spur) Cancelled, Rouleaux Cancelled, Schistocytes Cancelled 11/18/21 22:22: WBC 7.2, RBC 2.51 L, Hgb 7.7 L, Hct 23.1 L, MCV 92.0, MCH 30.7, MCHC 33.3, RDW Std Deviation 41.4, RDW Coeff of Annabelle 12.3, Plt Count 139 L, MPV 9.2, Immature Gran % (Auto) 0.400, Neut % (Auto) 83.3 H, Lymph % (Auto) 10.3 L, [place] % (Auto) 5.9, Eos % (Auto) 0.1, Baso % (Auto) 0.0, Absolute Neuts (auto) 6.0, Absolute Lymphs (auto) 0.74 L, Nucleated RBC % 0 11/19/21 05:45: WBC 5.6, RBC 2.12 L, Hgb 6.5 L, Hct 19.7 L, MCV 92.9, MCH 30.7, MCHC 33.0, RDW Std Deviation 43.0, RDW Coeff of Annabelle 12.6, Plt Count 138 L, MPV 9.9, Immature Gran % (Auto) 0.500, Neut % (Auto) 67.4, Lymph % (Auto) 22.8, [place] % (Auto) 8.4, Eos % (Auto) 0.9, Baso % (Auto) 0.0, Absolute Neuts (auto) 3.8, Absolute Lymphs (auto) 1.28, Nucleated RBC % 0 Radiography Diagnostic Testing: Radiology Impression Obstetrics Ultrasound 11/18/21 18:02 IMPRESSION: 1. No intrauterine gestational sac, of unknown location. 2. Large left ovarian lesion, concerning for possible ectopic . 3. Moderate free fluid. Electronically Signed: Benita Richards MD at 21:15 EDT Reading Location ID and State: [id number] / Tel , Service support , ADDENDUM: 11/18/212124 IMPRESSION: 1. No intrauterine gestational sac, of unknown location. 2. Large left ovarian lesion, concerning for possible ectopic . 3. Moderate free fluid. N.B. : The above Results were Read Back by Benita Richards MD to Dr. David Gilbert MD, and understanding confirmed on 11/18/2021 21:18:23 (ET). Electronically Signed: Benita Richards MD at 21:15 EDT , ROS Constitutional Constitutional: Denies change in weight, chills, fatigue, fever(s), headache(s) or weakness Eyes Eyes: Denies blurry vision, change in vision, seeing flashes or spots in vision ENT HEENT: Denies dizziness, headache(s), loss taste/smell or sore throat Cardiovascular Cardiovascular: Denies chest pain, dizziness, dyspnea, irregular heart rhythm, leg edema, palpitations, rapid heart rate or vomiting Respiratory/Chest Respiratory/Chest: Denies chest tightness, cough, dyspnea or breast pain Gastrointestinal Gastrointestinal: Denies abdominal pain, anorexia, constipation, cramping, diarrhea, hemorrhoids, vomiting or weight changes Genitourinary Genitourinary: Reports dysuria, urinary frequency and urinary urgency; Denies flank pain Musculoskeletal Musculoskeletal: Denies back pain, difficulty walking, joint pain, limited range of motion, muscle cramps or numbness Neurologic Neurologic: Denies abnormal movements, abnormal speech, dizziness, numbness, seizure-like activity or syncope Endocrine Endocrinology: Denies excessive sweating, polydipsia or polyuria Hematologic/Lymphatic Hematologic/Lymphatic: Denies easy bleeding, easy bruising or lymphadenopathy Physical Exam Const alert, oriented x3 and no apparent distress HEENT Head and Scalp: normal to inspection Resp normal respiratory effort, normal air movement and no retractions Cardio regular rate and regular rhythm GI Rectal Exam: other Other Details: abdomen appropriately tender. non- distended Extremity normal to inspection and no calf tenderness Assessment & Plan (1) Rh negative status during : QUALIFIERS: Trimester: first trimester Qualified Code(s): O26.891 - Other specified related conditions, first trimester; Z67.91 - Unspecified blood type, Rh negative COMMENT: Enrique 07/13/20 (2) Ruptured ectopic : (3) Acute blood loss anemia: COMMENT: secondary to ruptured ectopic PLAN: plan to transfuse 1 unit of blood now and repeat vitals and cbc 2 hrs after transfusion continue current pain medication consider dc to home later today or tomorrow am.
[2021-11-19] MEDS: Ceftriaxone 2 GM in 0.9% NS 50 ML Minibag x1 IV (14:04)
[2021-11-19] MEDS: 0.9% Normal Saline 1,000 ML 15 ML IV (14:05)
[2021-11-19 16:29] LABS: Hematocrit 22.4 % (37-47); Hemoglobin 7.5 g/dL (12.0-15.0)
[2021-11-19] MEDS: Phenazopyridine 95 MG Tablet PO (17:27)
== END 2021-11-19 19:02 | disposition home or self-care (01) | DRG 818 ==
LOC: ED 19:19 → SDC 19:32 → ACINP 19:33 → SDC 23:27 → MS3 11-19 09:59
PROVIDERS: Admitting Provider Obstetrics & Gynecology; Emergency Provider Emergency Medicine; PCP Family Medicine; Visit Provider Obstetrics & Gynecology
PROC: 10T24ZZ Resection of Products of Conception, Ectopic, Percutaneous Endoscopic Approach (ICD-10-PCS; CPT 59150; principal; 2021-11-18 20:15)
DX: O00.102 Left tubal pregnancy without intrauterine pregnancy (principal); D62 Acute posthemorrhagic anemia; A60.00 Herpesviral infection of urogenital system, unspecified; Z87.440 Personal history of urinary (tract) infections; N97.9 Female infertility, unspecified; N80.1 Endometriosis of ovary; N80.3 Endometriosis of pelvic peritoneum; Z67.91 Unspecified blood type, Rh negative
CPT/HCPCS: 36415; 76817; 80048; 81001; 84702; 84703; 85014; 85018; 85025; 86850; 86900; 86901; 86920; 86922; 88305; 90384; 97802; 99285; 99406; J7030; J7120; P9016; A4216; J0696; J2405; J2790

== ENCOUNTER → 2021-11-23 | Outpatient (CLI) | payer BC, SELFPAY | END | disposition home or self-care (01) | LOC: LABSPEC 16:39 | PROVIDERS: PCP Family Medicine; Referring Provider Obstetrics & Gynecology; Visit Provider Obstetrics & Gynecology | DX: R30.0 Dysuria (principal) | CPT/HCPCS: 87077; 87086; 87088; 87186 ==

== ENCOUNTER → 2022-06-05 | Outpatient (CLI) | payer OTHER, SELFPAY ==
--- NOTE | 2022-06-05 14:25 | US_ITS ---
EXAM: US PELVIS TRANSVAGINAL CLINICAL INDICATION: pelvic pain TECHNIQUE: Transvaginal pelvic ultrasound was performed with grayscale and color Doppler imaging. Transvaginal imaging was used for better evaluation of the endometrium and adnexa. This report was created using [employer] report [employer] technology. COMPARISON: None. FINDINGS: UTERUS/CERVIX: Uterus measures 7.8 x 3.6 x 5.2 cm. The endometrium measures 8 mm. Anteverted. There is no uterine mass. RIGHT OVARY: The right ovary measures 4.8 x 3.5 x 4.8 cm. There is a 2.8 x 2.4 x 4.3 cm anechoic structure in the ovary compatible with a cyst. Blood flow is present in the right ovary. LEFT OVARY: The left ovary measures 2.3 x 1.8 x 2.2 cm. Blood flow is present in the left ovary. FREE FLUID: None. BLADDER: Empty bladder which cannot be evaluated with this probe. US/Transvaginal Non- IMPRESSION: Right ovarian cyst. No other abnormalities identified. Electronically Signed: Cristobal Katz MD at 17:26 EST ,
== END | disposition home or self-care (01) ==
LOC: US 14:24
PROVIDERS: PCP Family Medicine; Referring Provider Obstetrics & Gynecology; Visit Provider Obstetrics & Gynecology
DX: R10.2 Pelvic and perineal pain (principal)
CPT/HCPCS: 76830; 93976

== ENCOUNTER → 2022-10-07 | Outpatient (CLI) | payer OTHER, SELFPAY ==
[2022-10-07 10:09] LABS: Absolute Lymphocyte Count 1.23 X10^3/uL (0.83-4.51); Absolute Neutrophil Count 3.7 X10^3/uL (2.0-7.7); Basophil# 0.02 X10^3/uL; Basophil% 0.4 % (0-1); Eosinophil# 0.13 X10^3/uL; Eosinophils% 2.4 % (0-5); Hemoglobin 13.1 g/dL (12.0-15.0); Lymphocyte # 1.23 X10^3/ul (0.83-4.51); Lymphocyte % 22.3 % (19-41); Mean Corp Hgb Conc 32.8 g/dL (32-36); Mean Corpuscular Hgb 29.8 pg (27.0-32.0); Mean Corpuscular Volume 90.9 fL (81-99); Mean Platelet Vol. 9.6 fl (6.2-12.0); Monocyte# 0.41 X10^3/uL; Monocyte% 7.4 % (0-10); NRBC Flagged by Analyzer 0 % (0-5); Neutrophil # 3.72 X10^3/uL (2.7-7.7); Neutrophil % 67.3 % (47-70); Platelet Count 213 K/mm3 (150-450); RBC Distribution Width SD 40.2 fl (35.1-43.9); White Blood Count 5.5 K/mm3 (4.4-11.0)
[2022-10-07 10:35] LABS: Progesterone Level 0.81 ng/mL (See Comment)
== END | disposition home or self-care (01) ==
PROVIDERS: PCP Family Medicine; Referring Provider Obstetrics & Gynecology; Visit Provider Obstetrics & Gynecology
DX: N97.0 Female infertility associated with anovulation (principal)
CPT/HCPCS: 36415; 84144; 85025

== ENCOUNTER → 2022-11-08 | Outpatient (CLI) | payer OTHER, SELFPAY ==
[2022-11-08 17:44] LABS: Progesterone Level 11.07 ng/mL (See Comment)
[2022-11-08 18:01] LABS: hCG Titer Quant., Serum 2153 mIU/mL (1-3)
[2022-11-10 18:15] LABS: hCG Titer Quant., Serum 5923 mIU/mL (1-3)
== END | disposition home or self-care (01) ==
LOC: LAB 16:48
PROVIDERS: PCP Family Medicine; Referring Provider Obstetrics & Gynecology; Visit Provider Obstetrics & Gynecology
DX: N91.2 Amenorrhea, unspecified (principal)
CPT/HCPCS: 36415; 84144; 84702

== ENCOUNTER → 2022-11-19 | Outpatient (CLI) | payer OTHER, SELFPAY ==
[2022-11-19 13:36] LABS: Absolute Lymphocyte Count 1.91 X10^3/uL (0.83-4.51); Absolute Neutrophil Count 5.4 X10^3/uL (2.0-7.7); Basophil# 0.01 X10^3/uL; Basophil% 0.1 % (0-1); Eosinophil# 0.17 X10^3/uL; Eosinophils% 2.1 % (0-5); Hematocrit 37.4 % (37-47); Hemoglobin 12.4 g/dL (12.0-15.0); Lymphocyte # 1.91 X10^3/ul (0.83-4.51); Lymphocyte % 23.9 % (19-41); Mean Corp Hgb Conc 33.2 g/dL (32-36); Mean Corpuscular Hgb 29.7 pg (27.0-32.0); Mean Corpuscular Volume 89.7 fL (81-99); Mean Platelet Vol. 9.9 fl (6.2-12.0); Monocyte# 0.44 X10^3/uL; Monocyte% 5.5 % (0-10); NRBC Flagged by Analyzer 0 % (0-5); Neutrophil # 5.43 X10^3/uL (2.7-7.7); Platelet Count 195 K/mm3 (150-450); RBC Distribution Width CV 12.2 % (11.6-14.6); Red Blood Count 4.17 M/mm3 (4.2-5.4)
[2022-11-19 14:31] LABS: HIV - WCH Non-Reactive (Nonreactive); Hepatitis B Surface Antigen Non-Reactive (Nonreactive); Hepatitis C Antibody Non-Reactive (Nonreactive); Rubella IgG Reactive (Nonreactive); Syphilis Antibodies Non-reactive
[2022-11-22 04:07] LABS: Chlamydia By Nucleic Acid AMP Negative (Negative); Gonococcus By Nucleic Acid AMP Negative (Negative)
[2023-01-18 20:45] LABS: HPV Reflexed? NOT INDICATED
== END | disposition home or self-care (01) ==
PROVIDERS: PCP Family Medicine; Referring Provider Obstetrics & Gynecology; Visit Provider Obstetrics & Gynecology
DX: Z34.00 Encounter for supervision of normal first pregnancy, unspecified trimester (principal)
CPT/HCPCS: 36415; 85025; 86703; 86762; 86780; 86803; 86850; 86900; 86901; 87086; 87088; 87340; 87491; 87591; 88175; G0145

== ENCOUNTER → 2022-12-12 | Outpatient (CLI) | payer OTHER, SELFPAY ==
[2022-12-12 12:55] LABS: NATERA MAILED SPECIMEN
== END | disposition home or self-care (01) ==
LOC: LAB 11:53
PROVIDERS: PCP Family Medicine; Referring Provider Obstetrics & Gynecology; Visit Provider Obstetrics & Gynecology
DX: Z34.81 Encounter for supervision of other normal pregnancy, first trimester (principal)
CPT/HCPCS: 36415

== ENCOUNTER → 2023-04-03 | Outpatient (CLI) | payer OTHER, SELFPAY | END | disposition home or self-care (01) | PROVIDERS: PCP Family Medicine; Visit Provider Obstetrics & Gynecology | DX: R30.0 Dysuria (principal) | CPT/HCPCS: 87086; 87088 ==

== ENCOUNTER → 2023-04-17 | Outpatient (CLI) | payer OTHER, SELFPAY ==
[2023-04-17 14:01] LABS: Absolute Lymphocyte Count 1.05 X10^3/uL (0.83-4.51); Absolute Neutrophil Count 7.3 X10^3/uL (2.0-7.7); Basophil# 0.02 X10^3/uL; Basophil% 0.2 % (0-1); Eosinophil# 0.07 X10^3/uL; Eosinophils% 0.8 % (0-5); Hematocrit 33.5 % (37-47); Hemoglobin 11.7 g/dL (12.0-15.0); Lymphocyte # 1.05 X10^3/ul (0.83-4.51); Lymphocyte % 11.8 % (19-41); Mean Corp Hgb Conc 34.9 g/dL (32-36); Mean Corpuscular Hgb 32.1 pg (27.0-32.0); Mean Platelet Vol. 9.7 fl (6.2-12.0); Monocyte# 0.41 X10^3/uL; Monocyte% 4.6 % (0-10); NRBC Flagged by Analyzer 0 % (0-5); Neutrophil # 7.27 X10^3/uL (2.7-7.7); Neutrophil % 81.9 % (47-70); Platelet Count 172 K/mm3 (150-450); RBC Distribution Width CV 13.2 % (11.6-14.6); RBC Distribution Width SD 43.9 fl (35.1-43.9); Red Blood Count 3.64 M/mm3 (4.2-5.4); White Blood Count 8.9 K/mm3 (4.4-11.0)
[2023-04-17 14:13] LABS: Glucose Challenge Gest 1H 50g 125 mg/dL (70-140)
[2023-04-17 14:46] LABS: HIV - WCH Non-Reactive (Nonreactive); Syphilis Antibodies Non-reactive
== END | disposition home or self-care (01) ==
LOC: LAB 13:29
PROVIDERS: PCP Family Medicine; Referring Provider Obstetrics & Gynecology; Visit Provider Obstetrics & Gynecology
DX: Z34.90 Encounter for supervision of normal pregnancy, unspecified, unspecified trimester (principal)
CPT/HCPCS: 36415; 82950; 85025; 86703; 86780; 86850; 86900; 86901

== ENCOUNTER → 2023-04-30 | Outpatient (CLI) | payer OTHER, SELFPAY ==
[2023-04-30 09:24] LABS: Absolute Lymphocyte Count 1.41 X10^3/uL (0.83-4.51); Absolute Neutrophil Count 5.9 X10^3/uL (2.0-7.7); Basophil# 0.02 X10^3/uL; Basophil% 0.2 % (0-1); Eosinophil# 0.14 X10^3/uL; Eosinophils% 1.7 % (0-5); Hematocrit 34.6 % (37-47); Hemoglobin 11.2 g/dL (12.0-15.0); Lymphocyte # 1.41 X10^3/ul (0.83-4.51); Lymphocyte % 17.5 % (19-41); Mean Corp Hgb Conc 32.4 g/dL (32-36); Mean Corpuscular Hgb 30.3 pg (27.0-32.0); Mean Corpuscular Volume 93.5 fL (81-99); Monocyte# 0.57 X10^3/uL; Monocyte% 7.1 % (0-10); NRBC Flagged by Analyzer 0 % (0-5); Neutrophil # 5.87 X10^3/uL (2.7-7.7); Neutrophil % 72.8 % (47-70); Platelet Count 163 K/mm3 (150-450); RBC Distribution Width CV 12.7 % (11.6-14.6); RBC Distribution Width SD 43.4 fl (35.1-43.9); White Blood Count 8.1 K/mm3 (4.4-11.0)
[2023-04-30 09:57] LABS: ALB/GLOB Ratio 0.8 RATIO (0.9-2.4); AST(SGOT) 17 U/L (15-37); Alanine Aminotransfer ALT/SGPT 31 U/L (13-56); Albumin, Serum 2.7 g/dL (3.2-5.0); Alkaline Phosphatase 77 U/L (45-117); Anion Gap 4 (5-15); BUN 12 mg/dL (7-18); BUN/Creat Ratio 20.2 RATIO (10-20); Calcium,Total 8.4 mg/dL (8.5-10.1); Chloride 111 mmol/L (98-107); EST Glomerular Filtration Rate 129 mL/min (>60); Est Glom Filt Rate - Afr Amer 156 mL/min (>60); Globulin 3.6 g/dL (2.2-4.2); Glucose 77 mg/dL (74-106); Potassium 4.1 mmol/L (3.5-5.1); Protein, Total 6.3 g/dL (6.4-8.2); Sodium Level 139 mmol/L (136-145)
== END | disposition home or self-care (01) ==
PROVIDERS: PCP Family Medicine; Referring Provider Obstetrics & Gynecology; Visit Provider Obstetrics & Gynecology
DX: O99.719 Diseases of the skin and subcutaneous tissue complicating pregnancy, unspecified trimester (principal); L29.9 Pruritus, unspecified; Z3A.00 Weeks of gestation of pregnancy not specified
CPT/HCPCS: 36415; 80053; 85025

== ENCOUNTER 2023-05-08 19:20 | Outpatient (CLI) | payer OTHER, SELFPAY ==
[2023-05-08] VITALS (8 sets, daily range): BP systolic 113–126; BP diastolic 65–72; PULSE 73–99; TEMP 36.7; O2SAT 99–100; BMI 32.1
--- NOTE | 2023-05-08 20:03 | OB.TRI.HP_ITS ---
HPI - General HPI Narrative SHAHZAD HERRERA, is a 28 F who presents with left upper quadrant pain and previously had headache but it is now spontaneously resolved. She was initially seen in the ER and had an elevated blood pressure but now the repeat blood pressures are all within normal limits. She has had intermittent itching which has not improved she has bile acids that are pending. Previous liver enzyme blood work was within normal limits. She is on ursodiol and this is not affected her itching. She is feeling good movement denies any vaginal bleeding or abdominal pain. Maternal Data Information JOSEPH Calculator Estimated Delivery Date Method Current WG Current Estimate 07/10/23 LMP (Certain) 31w 0d Other Estimates 07/08/23 Ultrasound #1 31w 2d PFSH PFSH Medical History Chronic urinary tract infection Genital herpes Kidney stones Home Medications valacyclovir 500 mg tablet (Valtrex) 500 mg PO DAILY PRN Herpes 07/26/20 [History Last Taken Unknown] docosahexaenoic acid 200 mg capsule ( DHA) mg PO 11/19/22 [History Last Taken Unknown] metoclopramide HCl 5 mg tablet (Reglan) 5 mg PO TID PRN nausea and vomiting #60 tabs 01/09/23 [Rx Last Taken Unknown] ursodiol 300 mg capsule 300 mg PO BID #60 caps 05/05/23 [Rx Last Taken 05/08/23] Allergy/AdvReac Type Severity Reaction Status Date / Time No Known Allergies Allergy Verified 05/08/23 21:07 Family History Grandmother Diabetes Heart disease Surgical History H/O unilateral salpingectomy History of placement of ear tubes S/P bunionectomy Social History Smoking Status: Current every day smoker tobacco type: e-cigarettes Smokeless tobacco user: other Electronic Cigarette Use: with nicotine alcohol intake: current details: occasionally substance use type: does not use caffeine: Yes what type of physical activity do you participate in: none seatbelt use: always do you feel safe at home: Yes additional social history: Boyfriend-Zeeshan Patient works at [employer] History 2 Elective abortions Hx Para 0 Spontaneous abortions Hx # Term Pregnancies Ectopic pregnancies 1 Hx # Pregnancies Multiple births # of living children Visit Details Expected Delivery Route/Plan Labor Preferences- CB/BF classes: [] labor support person: [] labor intervention preferences: [] pain management options preferred: [] cut cord/dad catch: [] : [] PP control planned: [] discussed possible routes of delivery and associated risks: [] special requests: [] Plans Covid status: discussed Flu vaccine: discussed Tdap vaccine: [] Rhogam: [] LARC form signed: [] Problem list reviewed and updated with the most current plan of care details and appropriate orders placed. Relevant counseling for the gestational age provided. Continue routine care and follow up unless otherwise noted in visit notes/problem list details OB Flowsheet Initial Weight: Not Recorded Date -?-?-?-?-?-?-?-?-?-?-?-?- EGA Weight BP Urine Prot -?-?-?-?-?-?-?-?-?-?-?-?- Glucose FHR FuHt Pres Dilation -?-?-?-?-?-?-?-?-?-?-?-?- Effaced St Visit Note 12/12/22 -?-?-?-?-?-?-?-?-?-?-?-?- 10w 0d 151 lb 6 oz 124/75 Nega tive -?-?-?-?-?-?-?-?-?-?-?-?- Negative 170 -?-?-?-?-?-?-?-?-?-?-?-?- JV- CRL consiste nt with LMP. desires nipt. prefers doc only for delivery but willing to see Midlevels for office visits. 01/09/23 -?-?-?-?-?-?-?-?-?-?-?-?- 14w 0d 156 lb 123/79 Negative -?-?-?-?-?-?-?-?-?-?-?-?- Negative 156 -?-?-?-?-?-?-?-?-?-?-?-?- JV- reglan order ed for nausea. nt normal. plan for anatomy on 02/17. CRL measuring consistent with 14 week gestation. 02/07/23 -?-?-?-?-?-?-?-?-?-?-?-?- 18w 1d 160 lb 116/80 Negative -?-?-?-?-?-?-?-?-?-?-?-?- Negative 145 -?-?-?-?-?-?-?-?-?-?-?-?- SM- no vb crampi ng 03/06/23 -?-?-?-?-?-?-?-?-?-?-?-?- 22w 0d 166 lb 6 oz 114/73 Nega tive -?-?-?-?-?-?-?-?-?-?-?-?- Negative 144 23 -?-?-?-?-?-?-?-?-?-?-?-?- JV- no lof, vagi nal bleeding, or dec fm. getting rpt cervical length with mfm. 04/03/23 -?-?-?-?-?-?-?-?-?-?-?-?- 26w 0d 171 lb 8 oz 118/75 Nega tive -?-?-?-?-?-?-?-?-?-?-?-?- Negative 150 26 -?-?-?-?-?-?-?--?-?-?-?-?- Sm- no vb lof go od fm no regualr ctx having some dysuria 04/17/23 -?-?-?-?-?-?-?-?-?-?-?-?- 28w 0d 174 lb 4 oz 104/62 Nega tive -?-?-?-?-?-?--?-?-?-?-?-?- Negative 145 28 -?-?-?-?-?-?-?-?-?-?-?-?- JV- no lof, vagi nal bleeding, or dec fm. no complaints today. rhogam and tdap today. will think about flu vaccine. 05/01/23 -?-?-?-?-?-?-?-?-?-?-?-?- 30w 0d 178 lb 116/78 Negative -?-?-?-?-?-?-?-?-?-?-?-?- Negative 140 30 -?-?-?-?-?-?-?-?-?-?-?-?- kw-no lof/vb/ctx . good fm. kw-no lof/vb/ctx. good fm. l abs done yesterday with SM. discussed POC-awaiting labs. Physical Exam Const alert, oriented x3 and no apparent distress HEENT Head and Scalp: normocephalic and atraumatic Eyes EOMs intact bilaterally Neck full ROM and no lymphadenopathy Chest inspection of chest normal Resp normal respiratory effort GI GI Narrative: gravid, abdomen nontender, AGA Neuro no focal motor deficits Motor Exam: clonus absent NST FHR Rate Baby A Baseline: 140 Variability:: Moderate Accelerations:: 15 x 15 Decelerations:: None NST Reactive:: Yes FHR Category:: Category I Uterine Activity:: no regular Assessment & Plan (1) Elevated blood-pressure reading without diagnosis of hypertension: COMMENT: Preeclampsia evaluation in triage 05/08 and Celestone given for prematurity. Repeat BPs within normal limits (2) Pruritus of : COMMENT: labs done (3) Low lying placenta, antepartum: COMMENT: rpt at 28 weeks placenta 1.2 cm from os , had spotting in . pelvic rest encouraged. (4) : QUALIFIERS: Weeks of gestation: 28 weeks Qualified Code(s): Z3A.28 - 28 weeks gestation of COMMENT: NT done, nipt low risk declined carrier, desires doc only at delivery but ok with Midlevel providers for office visits. (5) Supervision of normal : COMMENT: PRR JOSEPH 07/10/23 girl Zeeshan (6) Rh negative status during : QUALIFIERS: Trimester: first trimester Qualified Code(s): O26.891 - Other specified related conditions, first trimester; Z67.91 - Unspecified blood type, Rh negative COMMENT: rhogam given for subchorionic hematoma in 1st trimester, resolved rhogam given 04/17/23 (7) Family history of Down syndrome: COMMENT: NT done (8) Genital herpes affecting : COMMENT: plan valtrex at 36 weeks (9) Prematurity of fetus: COMMENT: Celestone given 05/08 PLAN: Plan See assessment and plan comments for plan details. Charges/Coding Procedures Urinary/Genital [id number]: 66915-03 non-stress test Interp Multi Select Codes Visit Charges Office Visit/Consults: 41453 OV L3 Est
[2023-05-08] MEDS: Betamethasone/Betamethasone 30 MG/5 ML Vial 12 MG IM (20:33)
[2023-05-08 20:43] LABS: Hematocrit 31.9 % (37-47); Hemoglobin 10.8 g/dL (12.0-15.0); Mean Corp Hgb Conc 33.9 g/dL (32-36); Mean Corpuscular Hgb 30.9 pg (27.0-32.0); Mean Corpuscular Volume 91.4 fL (81-99); Mean Platelet Vol. 9.8 fl (6.2-12.0); Platelet Count 159 K/mm3 (150-450); RBC Distribution Width CV 12.6 % (11.6-14.6); RBC Distribution Width SD 41.4 fl (35.1-43.9); Red Blood Count 3.49 M/mm3 (4.2-5.4)
[2023-05-08 20:44] LABS: Protein, Urine (Random) < 6.0 mg/dL (<11.9)
[2023-05-08 20:45] LABS: AST(SGOT) 20 U/L (15-37); Alanine Aminotransfer ALT/SGPT 31 U/L (13-56); Creatinine, Serum 0.66 mg/dL (0.55-1.02); EST Glomerular Filtration Rate 114 mL/min (>60); Est Glom Filt Rate - Afr Amer 138 mL/min (>60); Uric Acid 3.6 mg/dL (2.6-6.0)
== END 2023-05-08 21:24 | disposition home or self-care (01) ==
LOC: WPOUT 19:40 → WP 19:40
PROVIDERS: PCP Family Medicine; Visit Provider Obstetrics & Gynecology
DX: O99.891 Other specified diseases and conditions complicating pregnancy (principal); R10.12 Left upper quadrant pain; Z3A.28 28 weeks gestation of pregnancy; O99.333 Smoking (tobacco) complicating pregnancy, third trimester; F17.290 Nicotine dependence, other tobacco product, uncomplicated; R03.0 Elevated blood-pressure reading, without diagnosis of hypertension; O99.713 Diseases of the skin and subcutaneous tissue complicating pregnancy, third trimester; L29.9 Pruritus, unspecified; O44.43 Low lying placenta NOS or without hemorrhage, third trimester; O26.893 Other specified pregnancy related conditions, third trimester; Z67.91 Unspecified blood type, Rh negative; Z84.89 Family history of other specified conditions; O98.313 Other infections with a predominantly sexual mode of transmission complicating pregnancy, third trimester; A60.00 Herpesviral infection of urogenital system, unspecified
CPT/HCPCS: 36415; 59025; 59050; 82565; 82570; 84156; 84450; 84460; 84550; 85027; 96372; 99221; G0378; J0702

== ENCOUNTER 2023-05-09 20:40 | Outpatient (CLI) | payer OTHER, SELFPAY ==
[2023-05-09] MEDS: Betamethasone/Betamethasone 30 MG/5 ML Vial 12 MG IM (21:38)
--- NOTE | 2023-05-10 08:43 | OB.TRI.PN ---
Progress Notes Date of Service: 05/09/23 Progress Note: Maryam March 28 yr old at 31.1 weeks gestation presents to unit for 2nd dose of IM Celestone. Charges/Coding Multi Select Codes Urinary/Genital Urinary/Genital CPT Codes: No Charge Assessment & Plan (1) Prematurity of fetus: COMMENT: Celestone given 05/08 and 05/09 (2) Elevated blood-pressure reading without diagnosis of hypertension: COMMENT: Preeclampsia evaluation in triage 05/08 and Celestone given for prematurity. Repeat BPs within normal limits (3) Pruritus of : COMMENT: labs done (4) Low lying placenta, antepartum: COMMENT: rpt at 28 weeks placenta 1.2 cm from os , had spotting in . pelvic rest encouraged. (5) : QUALIFIERS: Weeks of gestation: 28 weeks Qualified Code(s): Z3A.28 - 28 weeks gestation of COMMENT: NT done, nipt low risk declined carrier, desires doc only at delivery but ok with Midlevel providers for office visits. (6) Supervision of normal : COMMENT: PRR JOSEPH 07/10/23 girl Zeeshan (7) Rh negative status during : QUALIFIERS: Trimester: first trimester Qualified Code(s): O26.891 - Other specified related conditions, first trimester; Z67.91 - Unspecified blood type, Rh negative COMMENT: rhogam given for subchorionic hematoma in 1st trimester, resolved rhogam given 04/17/23 (8) Family history of Down syndrome: COMMENT: NT done (9) Genital herpes affecting : COMMENT: plan valtrex at 36 weeks
== END 2023-05-09 21:42 | disposition home or self-care (01) ==
LOC: WPOUT 21:07 → WP 21:08
PROVIDERS: PCP Family Medicine; Visit Provider Advanced Practice Midwife
DX: O99.891 Other specified diseases and conditions complicating pregnancy (principal); R03.0 Elevated blood-pressure reading, without diagnosis of hypertension; Z3A.31 31 weeks gestation of pregnancy; O99.713 Diseases of the skin and subcutaneous tissue complicating pregnancy, third trimester; L29.9 Pruritus, unspecified; O44.43 Low lying placenta NOS or without hemorrhage, third trimester; O26.893 Other specified pregnancy related conditions, third trimester; Z82.79 Family history of other congenital malformations, deformations and chromosomal abnormalities; O98.313 Other infections with a predominantly sexual mode of transmission complicating pregnancy, third trimester; A60.00 Herpesviral infection of urogenital system, unspecified
CPT/HCPCS: J0702

== ENCOUNTER → 2023-06-12 | Outpatient (CLI) | payer OTHER, SELFPAY | END | disposition home or self-care (01) | LOC: LABSPEC 16:27 | PROVIDERS: PCP Family Medicine; Referring Provider Obstetrics & Gynecology; Visit Provider Obstetrics & Gynecology | DX: Z34.90 Encounter for supervision of normal pregnancy, unspecified, unspecified trimester (principal) | CPT/HCPCS: 87081 ==

== ENCOUNTER 2023-06-26 17:13 | Inpatient (IN) | payer OTHER, SELFPAY ==
[2023-06-26] VITALS (30 sets, daily range): BP systolic 91–140; BP diastolic 42–90; PULSE 80–119; TEMP 36.6–37.1; O2SAT 97–100; BMI 33.3
--- NOTE | 2023-06-26 17:52 | HP.PCM.OB_ITS ---
HPI - General General Date of Admission: 06/26/23 HPI Narrative SHAHZAD FITZGERALD, is a 28 F who presentsfor IOL sec oligo ze 3.8 cm today in office after lower FH 35 cm today no SROM or LOF good fm irregular ctx Maternal Data Information JOSEPH Calculator Estimated Delivery Date Method Current WG Current Estimate 07/10/23 LMP (Certain) 38w 0d Other Estimates 07/08/23 Ultrasound #1 38w 2d PFSH PFSH Medical History Chronic urinary tract infection Genital herpes Kidney stones Home Medications docosahexaenoic acid 200 mg capsule ( DHA) mg PO 11/19/22 [History Last Taken Unknown] metoclopramide HCl 5 mg tablet (Reglan) 5 mg PO TID PRN nausea and vomiting #60 tabs 01/09/23 [Rx Last Taken Unknown] valacyclovir 500 mg tablet (Valtrex) 500 mg PO DAILY PRN Herpes #30 tabs 06/12/23 [Rx Last Taken Unknown] Allergy/AdvReac Type Severity Reaction Status Date / Time No Known Allergies Allergy Verified 06/26/23 15:14 Family History Grandmother Diabetes Heart disease Surgical History H/O unilateral salpingectomy History of placement of ear tubes S/P bunionectomy Social History Smoking Status: Current every day smoker tobacco type: e-cigarettes Smokeless tobacco user: other Electronic Cigarette Use: with nicotine alcohol intake: current details: occasionally substance use type: does not use caffeine: Yes what type of physical activity do you participate in: none seatbelt use: always do you feel safe at home: Yes additional social history: Boyfriend-Zeeshan Patient works at [employer] History 2 Elective abortions Hx Para 0 Spontaneous abortions Hx # Term Pregnancies Ectopic pregnancies 1 Hx # Pregnancies Multiple births # of living children Visit Details Expected Delivery Route/Plan Labor Preferences- CB/BF classes: considering labor support person: [] labor intervention preferences: [] pain management options preferred: [] cut cord/dad catch: [] : [] PP control planned: [] discussed possible routes of delivery and associated risks: [] special requests: [] Plans Covid status: discussed Flu vaccine: discussed Tdap vaccine: given Rhogam: 28 weeks LARC form signed: declined movement and labor precautions reviewed. Problem list reviewed and updated with the most current plan of care details and appropriate orders placed. Relevant counseling for the gestational age provided. Continue routine care and follow up unless otherwise noted in visit notes/problem list details OB Flowsheet Initial Weight: Not Recorded Date -?-?-?-?-?-?-?-?-?-?-?-?- EGA Weight BP Urine Prot -?-?-?-?-?-?-?-?-?-?--?-?- Glucose FHR FuHt Pres Dilation -?-?-?-?-?-?-?-?-?-?-?-?- Effaced St Visit Note 12/12/22 -?-?-?-?-?-?-?-?-?-?-?-?- 10w 0d 151 lb 6 oz 124/75 Nega tive -?-?-?-?-?-?-?-?-?-?-?-?- Negative 170 -?-?-?-?-?-?-?-?-?-?-?-?- JV- CRL consiste nt with LMP. desires nipt. prefers doc only for delivery but willing to see Midlevels for office visits. 01/09/23 -?-?-?-?-?-?-?-?-?-?-?-?- 14w 0d 156 lb 123/79 Negative -?-?-?-?-?-?-?-?-?-?-?-?- Negative 156 -?-?-?-?-?-?-?-?-?-?-?-?- JV- reglan order ed for nausea. nt normal. plan for anatomy on 02/17. CRL measuring consistent with 14 week gestation. 02/07/23 -?-?-?-?-?--?-?-?-?-?-?-?- 18w 1d 160 lb 116/80 Negative -?-?-?-?-?-?-?-?-?-?-?-?- Negative 145 -?-?-?-?-?-?-?-?-?-?-?-?- SM- no vb crampi ng 03/06/23 -?-?-?-?-?-?-?-?-?-?-?-?- 22w 0d 166 lb 6 oz 114/73 Nega tive -?-?-?-?-?-?-?-?-?-?-?-?- Negative 144 23 -?-?-?-?-?-?-?-?-?-?-?-?- JV- no lof, vagi nal bleeding, or dec fm. getting rpt cervical length with mfm. 04/03/23 -?-?-?-?-?-?-?-?-?-?-?-?- 26w 0d 171 lb 8 oz 118/75 Nega tive -?-?-?-?-?--?-?-?-?-?-?-?- Negative 150 26 -?-?-?-?-?-?-?-?-?-?-?-?- Sm- no vb lof go od fm no regualr ctx having some dysuria 04/17/23 -?-?-?-?-?-?-?-?-?-?-?-?- 28w 0d 174 lb 4 oz 104/62 Nega tive -?-?-?-?-?-?-?-?-?-?-?-?- Negative 145 28 -?-?-?-?-?-?-?-?-?-?-?-?- JV- no lof, vagi nal bleeding, or dec fm. no complaints today. rhogam and tdap today. will think about flu vaccine. 05/01/23 -?-?-?-?-?-?-?-?-?-?-?-?- 30w 0d 178 lb 116/78 Negative -?-?-?-?-?-?-?-?-?-?-?--?- Negative 140 30 -?-?-?-?-?-?-?-?-?-?-?-?- kw-no lof/vb/ctx . good fm. kw-no lof/vb/ctx. good fm. l abs done yesterday with SM. discussed POC-awaiting labs. 05/15/23 -?-?-?-?-?-?-?-?-?-?-?-?- 32w 0d 181 lb 2 oz 123/79 Nega tive -?-?-?-?-?-?-?-?-?-?-?-?- Negative 140 32 -?-?-?-?-?-?-?-?-?-?-?-?- SM- itching impr sheldon no vb lof good fm n oregular ctx 05/29/23 -?-?-?-?-?-?-?-?-?-?-?-?- 34w 0d 185 lb 6 oz 123/81 Nega tive -?-?-?-?-?-?-?-?-?-?-?-?- Negative 150 34 -?-?-?-?-?-?-?-?-?-?-?-?- KW-no vb/lof/ctx . good fm. LARC done 06/12/23 -?-?-?-?-?-?-?-?-?-?-?-?- 36w 0d 137 lb 4 oz 187 lb 122/88 -?-?-?-?-?-?-?-?-?-?-?-?- 150 36 Cephalic 2 -?-?-?-?-?-?-?-?-?-?-?-?- 70 -2 SM- no vb lof good fm n oregular ctx gbs done 06/18/23 -?-?-?-?-?-?-?-?-?-?-?-?- 36w 6d 189 lb 6 oz 131/75 Nega tive -?-?-?-?-?-?-?-?-?-?-?-?- Negative 150 37 Cephalic 2 -?-?-?-?-?-?-?-?-?-?-?-?- 70 -2 SM- no vb lof good fm no regular ctx 06/26/23 -?-?-?-?-?-?-?-?-?-?-?-?- 38w 0d 188 lb 4 oz 110/88 Nega tive -?-?-?-?-?-?-?-?-?-?-?-?- Negative 125 35 Cephalic 3 -?-?-?-?-?-?-?-?-?-?-?-?- 70 -2 SM- no vb lof good fm no regular ctx NST FHR Rate Baby A Baseline: 130 Variability:: Moderate Accelerations:: 15 x 15 Decelerations:: None NST Reactive:: Yes FHR Category:: Category I Uterine Activity:: irregular ROS Constitutional Constitutional: Reports systems reviewed and no addt'l complaints, except as documented Eyes Eyes: Denies change in vision ENT HEENT: Reports systems reviewed and no addt'l complaints, except as documented; Denies headache(s) Cardiovascular Cardiovascular: Reports systems reviewed and no addt'l complaints, except as documented; Denies chest pain or dyspnea Respiratory/Chest Respiratory/Chest: Reports systems reviewed and no addt'l complaints, except as documented Gastrointestinal Gastrointestinal: Reports systems reviewed and no addt'l complaints, except as documented; Denies abdominal pain Genitourinary Genitourinary: Reports systems reviewed and no addt'l complaints, except as documented, contractions Details: present (irregular) and movement Details: present; Denies dysuria or genital lesions Musculoskeletal Musculoskeletal: Reports systems reviewed and no addt'l complaints, except as documented Neurologic Neurologic: Reports systems reviewed and no addt'l complaints, except as documented Endocrine Endocrinology: Reports systems reviewed and no addt'l complaints, except as documented Physical Exam Const alert, oriented x3, no apparent distress and healthy appearing HEENT normocephalic and moist oral mucous membranes Head and Scalp: atraumatic Neck full ROM, no lymphadenopathy, supple and thyroid normal General: trachea midline Lymph Lymphatic: no lymphadenopathy noted Chest inspection of chest normal Resp normal respiratory effort Cardio regular rate GI normal to inspection, nondistended, normoactive bowel sounds, soft to palpation and non-tender Inspection: gravid external exam normal Manual OB Exam: estimated gestational size appropriate, presentation cephalic, dilated, effaced and station Extremity normal to inspection General Extremity: Negative for edema Skin no rashes or lesions noted Neuro no focal motor deficits and deep tendon reflexes 2+ bilaterally Motor Exam: strength 5/5 throughout and clonus absent Psych mental status grossly normal Labs Labs Labs: Blood Type A NEGATIVE Antibody Screen NEGATIVE Hct 31.9 % (37-47) L Hgb 10.8 g/dL (12.0-15.0) L Obstetrics Ultrasound Syphilis Total Ab Non-reactive Rubella IgG Antibody Reactive (Nonreactive) Hep Bs Antigen Non-Reactive (Nonreactive) Hepatitis C Antibody Non-Reactive (Nonreactive) Chlamydia DNA (NATHANIEL) Negative (Negative) N.gonorrhoeae DNA (NATHANIEL) Negative (Negative) HIV 1&2 Antibody Non-Reactive (Nonreactive) Glucose 1 Hr 50 gm 125 mg/dL (70-140) Miscellaneous Test Assessment & Plan (1) Oligohydramnios in third trimester: (2) : QUALIFIERS: Weeks of gestation: 38 weeks Qualified Code(s): Z3A.38 - 38 weeks gestation of COMMENT: Neg GBS NT done, nipt low risk declined carrier, desires doc only at delivery but ok with Midlevel providers for office visits. (3) Supervision of normal : COMMENT: PRR JOSEPH 07/10/23 girl [place] Zeeshan (4) Rh negative status during : QUALIFIERS: Trimester: first trimester Qualified Code(s): O26.891 - Other specified related conditions, first trimester; Z67.91 - Unspecified blood type, Rh negative COMMENT: rhogam given for subchorionic hematoma in 1st trimester, resolved rhogam given 04/17/23 (5) Family history of Down syndrome: COMMENT: NT done (6) Genital herpes affecting : COMMENT: plan valtrex at 36 weeks
[2023-06-26] MEDS: Lactated Ringers 1,000 ML 50 ML IV (18:50)
[2023-06-26 19:08] LABS: Absolute Lymphocyte Count 1.36 X10^3/uL (0.83-4.51); Absolute Neutrophil Count 7.7 X10^3/uL (2.0-7.7); Basophil# 0.02 X10^3/uL; Basophil% 0.2 % (0-1); Eosinophil# 0.08 X10^3/uL; Eosinophils% 0.8 % (0-5); Hematocrit 33.3 % (37-47); Hemoglobin 11.2 g/dL (12.0-15.0); Lymphocyte # 1.36 X10^3/ul (0.83-4.51); Lymphocyte % 13.8 % (19-41); Mean Corp Hgb Conc 33.6 g/dL (32-36); Mean Corpuscular Volume 89.3 fL (81-99); Mean Platelet Vol. 10.3 fl (6.2-12.0); Monocyte# 0.62 X10^3/uL; Monocyte% 6.3 % (0-10); NRBC Flagged by Analyzer 0 % (0-5); Neutrophil # 7.73 X10^3/uL (2.7-7.7); Neutrophil % 78.1 % (47-70); Platelet Count 180 K/mm3 (150-450); RBC Distribution Width CV 13.3 % (11.6-14.6); RBC Distribution Width SD 43.2 fl (35.1-43.9); Red Blood Count 3.73 M/mm3 (4.2-5.4); White Blood Count 9.9 K/mm3 (4.4-11.0)
[2023-06-26] MEDS: Oxytocin 15 Units/NS 250ml 15 UNITS/250 ML IV.SOLN 2 UNITS IV (19:08)
[2023-06-26 19:46] LABS: Syphilis Antibodies Non-reactive
[2023-06-26] MEDS: LACTATED RINGERS 500 ML 999 ML IV (20:36)
[2023-06-26] MEDS: fentaNYL-bupivacaine (epidural) 100 ML BAG EPIDURAL (21:46)
[2023-06-26] MEDS: Ondansetron 4 MG/2 ML Vial IV (23:12)
[2023-06-27] VITALS (42 sets, daily range): BP systolic 91–158; BP diastolic 46–94; PULSE 60–190; RESP 16; TEMP 36.3–37.7; O2SAT 96–100
[2023-06-27] MEDS: Lactated Ringers 1,000 ML 200 ML IV ×3 (01:46→13:17)
[2023-06-27] MEDS: proCHLORPERazine 10 MG/2 ML Vial IV (01:51)
[2023-06-27] MEDS: fentaNYL-bupivacaine (epidural) 100 ML BAG EPIDURAL ×3 (01:56→11:53)
--- NOTE | 2023-06-27 02:26 | PCM.PN.BLA ---
Progress Note arom clear fluid 4-5/80/-1 current tracing: FHT: 130 Moderate variability reactive no decelerations category I tracing [place]: q 2-3 Contractions reviewed tracing abnormalities since last note: isolated variable A/P: continue pit pr protocol, position changes
[2023-06-27] MEDS: LACTATED RINGERS 500 ML 999 ML IV ×2 (02:34→06:39)
--- NOTE | 2023-06-27 07:12 | PN_ITS ---
Progress Note now 8 cm current tracing: FHT: 130 Moderate variability reactive early decelerations category I tracing [place]: q 2-3 Contractions reviewed tracing abnormalities since last note: 2 min decel into 60s good recovery with moderate variability into the 120s A/P: pitocin turned off and then decreased in half
[2023-06-27] MEDS: Acetaminophen 500 MG Tablet PO (07:46)
--- NOTE | 2023-06-27 17:50 | EX.PCM.OBRPT ---
Assessment & Plan (1) Oligohydramnios in third trimester: (2) : QUALIFIERS: Weeks of gestation: 38 weeks Qualified Code(s): Z3A.38 - 38 weeks gestation of COMMENT: Neg GBS NT done, nipt low risk declined carrier, desires doc only at delivery but ok with Midlevel providers for office visits. (3) Supervision of normal : COMMENT: PRR JOSEPH 07/10/23 girl [place] Zeeshan (4) Family history of Down syndrome: COMMENT: NT done (5) Genital herpes affecting : COMMENT: plan valtrex at 36 weeks (6) Rh negative status during : QUALIFIERS: Trimester: first trimester Qualified Code(s): O26.891 - Other specified related conditions, first trimester; Z67.91 - Unspecified blood type, Rh negative COMMENT: rhogam given for subchorionic hematoma in 1st trimester, resolved rhogam given 04/17/23 (7) Vaginal delivery: COMMENT: SM 37 oligo girl tara Maternal Data Information JOSEPH Calculator Estimated Delivery Date Method Current WG Current Estimate 07/10/23 LMP (Certain) 38w 1d Other Estimates 07/08/23 Ultrasound #1 38w 3d Vaginal Delivery Operative Information Date of Procedure: 06/27/23 Pre-Operative Diagnosis: see a/p diagnoses Post-Operative Diagnosis: same Surgery / Procedure Performed: Spontaneous Vaginal Delivery Type of Anesthesia: Epidural Special Medications: none Estimated Blood Loss: 200 Fluids Replaced: crystalloid Findings Description of Procedure: Patient began pushing and delivered the head in the HOLGER presentation. The head was delivered atraumatically . The anterior and posterior shoulders delivered without complication followed by the rest of the infant and the infant was placed on the maternal abdomen. Delayed cord clamping was employed for approximately 60 seconds. Cord was clamped and cut and gentle traction was applied to the cord and the placenta delivered spontaneously immediately following it was noted to be intact with three-vessel cord. The perineum and vagina were inspected and noted to have a second degree perineal laceration which was repaired in the usual fashion with 3-0 vicryl rapide. . EBL was 200 cc. Patient and infant tolerated delivery well. Amniotic Fluid Description: Clear Placental Delivery Description: Spontaneous Placenta Disposition: [facility] Cord Vessel Description: 3 Vessels Cord Entanglement: None Delayed Cord Clamping: Yes Post Vaginal Delivery Medications Given After Delivery: IV Pitocin Episiotomy Description: None Complication Complications: None Procedures Urinary/Genital [id number]: [id number] Vaginal Delivery [facility]
--- NOTE | 2023-06-27 17:52 | DCINST_ITS ---
Discharge Instructions Diet Discharge Diet: No restrictions Activity Discharge Activity: Return to Normal Activity, May Not Drive (while taking narcotic pain medications.) and May Shower May resume sexual activity in: 4-6 weeks Dressing / Incision Call your doctor if your incision/area has: Continuous Slow Oozing, Sudden Increased Bleeding, Increased Pain/ Swelling, Increased Redness and Foul Smelling Discharge Follow Up Care Please Follow Up With: Christen Swartz MD When: Call [phone] to make an appointment with your doctor in 6 weeks. If you had elevated blood pressure or 4th degree laceration, you will need to be seen in 2 weeks. Test Results: Test results from this visit will be discussed in further detail at your follow- up appointment, if applicable. Discharge Plan Admission Admit Date/Time: 06/26/23 17:13 Attending Provider: Christen Swartz Primary Care Provider: Devyn Lee Discharge Orders/Prescriptions Prescriptions: No Action DHA 200 mg capsule 1 mg PO valacyclovir [Valtrex] 500 mg tablet 500 mg PO DAILY PRN (Reason: Herpes ) Qty: 30 3RF Referrals / Follow Up: Devyn Lee MD [Primary Care Provider] - Disposition Disposition (needs filled in before D/C Order can be placed): Home, Self Care
[2023-06-27] MEDS: Oxytocin 15 Units/NS 250ml 15 UNITS/250 ML IV.SOLN 83 UNITS IV (18:03)
[2023-06-27] MEDS: Acetaminophen 500 MG Tablet 1000 MG PO (20:04)
[2023-06-27] MEDS: Benzocaine/Lanolin/Aloe Vera 1 SPRAY EACH TOPICAL (20:05)
[2023-06-27] MEDS: oxyCODONE 5 MG Tablet PO (20:05)
[2023-06-28] MEDS: Naproxen 500 MG Tablet PO ×3 (01:19→20:50)
[2023-06-28] MEDS: oxyCODONE 5 MG Tablet PO (01:19)
[2023-06-28] MEDS: Acetaminophen 500 MG Tablet 1000 MG PO ×4 (03:44→22:55)
[2023-06-28 03:55] VITALS: BP 109/44; PULSE 79; RESP 16; TEMP 36.2; O2SAT 97
[2023-06-28 07:37] VITALS: BP 114/72; PULSE 84; RESP 16; TEMP 36.4; O2SAT 97
--- NOTE | 2023-06-28 10:35 | PCM.PN.OB ---
Subjective Subjective Patient doing well without complaints. Tolerating PO. Ambulating and voiding without difficulty. Feeding well. Denies chest pain, shortness of breath, calf pain/swelling, fevers, chills, lightheadedness. Objective Data Objective Data Vital Signs: Vital Signs Temp Pulse Resp BP Pulse Ox O2 Del Method 97.5 F L 84 16 114/72 97 Room Air 06/28/23 07:37 06/28/23 07:37 06/28/23 07:37 06/28/23 07:37 06/28/23 07:37 06/28/23 07:37 Oxygen Delivery Method Room Air Weight: 187 lb 13.341 oz Body Mass Index (BMI) 33.3 Intake & Output: Intake and Output for Last 24 Hours 06/26/23 06/27/23 06/28/23 23:59 23:59 23:59 Intake Total 1412.89 / 1412.89 5562.94 / 5562.94 Output Total 200 / 200 2070 / 2070 300 / 300 Balance 1212.89 / 1212.89 3492.94 / 3492.94 -300 / -300 Lab / Micro Data 06/26/23 18:50 Physical Exam Const alert and no apparent distress Resp normal respiratory effort and normal air movement GI normal to inspection, nondistended, normoactive bowel sounds Uterus Palpation: uterus fundus firm (at u) Extremity normal to inspection, no calf tenderness and no pedal edema Psych mental status grossly normal Assessment & Plan (1) Vaginal delivery: COMMENT: SM 37 oligo girl [place] (2) Rh negative status during : QUALIFIERS: Trimester: first trimester Qualified Code(s): O26.891 - Other specified related conditions, first trimester; Z67.91 - Unspecified blood type, Rh negative COMMENT: rhogam given for subchorionic hematoma in 1st trimester, resolved rhogam given 04/17/23 PLAN: Plan s/p PPD # 1 1. routine post delivery care 2. breast feeding- support given 3. rh negative- rhogam per protocol 4. rubella immune 5. plan d/c home tomorrow.
[2023-06-28 12:46] VITALS: BP 122/66; PULSE 74; RESP 16; TEMP 36.6; O2SAT 96
[2023-06-28 17:13] VITALS: BP 116/59; PULSE 71; RESP 16; TEMP 36.6; O2SAT 96
--- NOTE | 2023-06-28 18:03 | CASEMGMT ---
Social Work SW attempted to see pt three times, she has been in the shower. SW spoke w/RN, she has no concerns for pt and baby for homegoing. SW will follow up w/pt at home on Friday. IRENE Child
[2023-06-28 20:30] VITALS: BP 135/93; PULSE 75; RESP 16; TEMP 36.6; O2SAT 97
[2023-06-28] MEDS: Senna/Docusate Sodium 1 Tablet PO (22:56)
[2023-06-29 02:16] VITALS: BP 127/74; PULSE 82; RESP 16; TEMP 36.6; O2SAT 96
[2023-06-29] MEDS: Benzocaine/Lanolin/Aloe Vera 1 SPRAY EACH TOPICAL (02:18)
[2023-06-29 08:23] VITALS: BP 124/79; PULSE 80; RESP 18; TEMP 36.1; O2SAT 96
[2023-06-29] MEDS: Naproxen 500 MG Tablet PO (09:33)
--- NOTE | 2023-06-29 09:47 | PCM.PN.OB ---
Subjective Subjective Patient doing well without complaints. fatigued, as cluster fed overnight. Tolerating PO. Ambulating and voiding without difficulty. Feeding well. Denies chest pain, shortness of breath, calf pain/swelling, fevers, chills, lightheadedness. Objective Data Objective Data Vital Signs: Vital Signs Temp Pulse Resp BP Pulse Ox O2 Del Method 97.0 F L 80 18 124/79 H 96 Room Air 06/29/23 08:23 06/29/23 08:23 06/29/23 08:23 06/29/23 08:23 06/29/23 08:23 06/29/23 08:23 Oxygen Delivery Method Room Air Weight: 187 lb 13.341 oz Body Mass Index (BMI) 33.3 Intake & Output: Intake and Output for Last 24 Hours 06/27/23 06/28/23 06/29/23 23:59 23:59 23:59 Intake Total 5562.94 / 5562.94 Output Total 2070 / 2070 300 / 300 Balance 3492.94 / 3492.94 -300 / -300 Lab / Micro Data 06/26/23 18:50 Physical Exam Const alert and no apparent distress Resp normal respiratory effort and normal air movement GI normal to inspection, nondistended, normoactive bowel sounds Uterus Palpation: uterus fundus firm (at u) Extremity normal to inspection, no calf tenderness and no pedal edema Psych mental status grossly normal Assessment & Plan (1) Vaginal delivery: COMMENT: 37 oligo girl [facility] (2) Rh negative status during : QUALIFIERS: Trimester: first trimester Qualified Code(s): O26.891 - Other specified related conditions, first trimester; Z67.91 - Unspecified blood type, Rh negative COMMENT: rhogam given for subchorionic hematoma in 1st trimester, resolved rhogam given 04/17/23 PLAN: Plan s/p PPD # 2 1. routine post delivery care 2. breast feeding- support given 3. rh negative 4. rubella immune 5. d/c home today
--- NOTE | 2023-06-29 09:48 | PCM.DC.SUM ---
Providers Date of Admission: 06/26/23 Primary Care Physician: Dr. Devyn Lee MD Reason For Visit: VAGINAL DELIVERY Diagnosis Discharge Diagnosis (1) Vaginal delivery: Status: Acute Code(s): O80 - Encounter for full-term uncomplicated delivery (2) Rh negative status during : Status: Chronic Code(s): O26.899 - Other specified related conditions, unspecified trimester; Z67.91 - Unspecified blood type, Rh negative Qualifiers: Trimester: first trimester Qualified Code(s): O26.891 - Other specified related conditions, first trimester; Z67.91 - Unspecified blood type, Rh negative Plan s/p PPD # 2 1. routine post delivery care 2. breast feeding- support given 3. rh negative 4. rubella immune 5. d/c home today Medications at Discharge Home Medications docosahexaenoic acid 200 mg capsule ( DHA) 1 mg PO 11/19/22 valacyclovir 500 mg tablet (Valtrex) 500 mg PO DAILY PRN Herpes #30 tabs 06/12/23 Hospital Course Operations None Procedures None Summary of Care Provided Hospital Course: admitted for oligiohydramnios, induction resulted in . uncomplicated course. Physical Exam Const alert and no apparent distress Resp normal respiratory effort and normal air movement GI normal to inspection, nondistended, normoactive bowel sounds Uterus Palpation: uterus fundus firm (at u) Extremity normal to inspection, no calf tenderness and no pedal edema Psych mental status grossly normal Weight / BMI Weight Weight: 187 lb 13.341 oz Body Mass Index (BMI) 33.3 ABG / Lab / Microbiology Data 06/26/23 18:50 D/C Instructions Discharge Diet: No restrictions May resume sexual activity in: 4-6 weeks Call your doctor if your incision/area has: Continuous Slow Oozing, Sudden Increased Bleeding, Increased Pain/ Swelling, Increased Redness and Foul Smelling Discharge Please Follow Up With: Christen Swartz MD When: Call [phone] to make an appointment with your doctor in 6 weeks. If you had elevated blood pressure or 4th degree laceration, you will need to be seen in 2 weeks. Meaningful Use Info Meaningful Use Diagnoses (Choose all that apply): None applicable Discharge Plan Admission Admit Date/Time: 06/26/23 17:13 Attending Provider: Christen Swartz Primary Care Provider: Devyn Lee Instructions Patient Instructions: After a Vaginal , Perineum Care After Childbirth Discharge Orders/Prescriptions Prescriptions: No Action DHA 200 mg capsule 1 mg PO valacyclovir [Valtrex] 500 mg tablet 500 mg PO DAILY PRN (Reason: Herpes ) Qty: 30 3RF Referrals / Follow Up: Devyn Lee MD [Primary Care Provider] - Disposition Disposition (needs filled in before D/C Order can be placed): Home, Self Care
== END 2023-06-29 12:30 | disposition home or self-care (01) | DRG 806 ==
PROVIDERS: Admitting Provider Obstetrics & Gynecology; PCP Family Medicine; Referring Provider Obstetrics & Gynecology; Visit Provider Obstetrics & Gynecology
DX: O41.03X0 Oligohydramnios, third trimester, not applicable or unspecified (principal); Z37.0 Single live birth; O98.32 Other infections with a predominantly sexual mode of transmission complicating childbirth; F17.210 Nicotine dependence, cigarettes, uncomplicated; O99.334 Smoking (tobacco) complicating childbirth; O70.1 Second degree perineal laceration during delivery; Z87.440 Personal history of urinary (tract) infections; Z87.442 Personal history of urinary calculi; Z67.91 Unspecified blood type, Rh negative; Z82.79 Family history of other congenital malformations, deformations and chromosomal abnormalities; Z3A.38 38 weeks gestation of pregnancy; A60.00 Herpesviral infection of urogenital system, unspecified
CPT/HCPCS: 59025; 59050; 85025; 86780; 86850; 86900; 86901; 99221; J7120; G0378; J2405; J3490

== ENCOUNTER → 2024-03-30 | Outpatient (CLI) | payer OTHER, SELFPAY ==
[2024-03-30 17:19] LABS: hCG Titer Quant., Serum 46208 mIU/mL (1-3)
== END | disposition home or self-care (01) ==
LOC: LAB 15:54
PROVIDERS: PCP Family Medicine; Referring Provider Obstetrics & Gynecology; Visit Provider Obstetrics & Gynecology
DX: N91.2 Amenorrhea, unspecified (principal)
CPT/HCPCS: 36415; 84702

== ENCOUNTER → 2024-04-08 | Outpatient (CLI) | payer OTHER, SELFPAY ==
--- NOTE | 2024-04-08 16:40 | US_ITS ---
INDICATION: dates EXAMINATION: Ultrasound US OB Transvaginal TECHNIQUE: Transabdominal pelvic ultrasound was performed. Grayscale, spectral waveform, and color flow Doppler evaluation of the adnexa. COMPARISON: No relevant prior comparison study available LMP: [03/04/2024 Beta-hCG: Unknown FINDINGS: UTERUS: 10.5 x 7.6 x 5.6 cm. RIGHT OVARY: 3.2 x 2.4 x 1.9 cm. Probable corpus luteum cyst measuring 2.4 cm. LEFT OVARY: 2.7 x 1.8 x 1.7 cm. Normal. FREE FLUID: There is minimal amount of free fluid in the cul-de-sac. INTRAUTERINE GESTATIONAL SAC(s) (size/shape): Single. The gestational sac measures about 2.7 cm in mean sac diameter.. YOLK SAC: Visualized measuring about 3 mm. POLE: Identified CRL 1.6 cm. ESTIMATED GESTATION AGE: 7 weeks and 6 days. The JOSEPH is 11/20/2023. HEART MOTION: 164 bpm. PLACENTA: Not visualized due to age. SUBCHORIONIC HEMORRHAGE: None. AMNIOTIC FLUID: Qualitatively normal. US/Transvaginal w/Preg US IMPRESSION: Single live intrauterine . Estimated gestational age is 7 weeks and 6 days. The JOSEPH is 11/19/2024. Electronically Signed: Teja Flannery MD at 13:35 EDT ,
== END | disposition home or self-care (01) ==
LOC: US 16:39
PROVIDERS: PCP Family Medicine; Referring Provider Nurse Practitioner Women's Health; Visit Provider Nurse Practitioner Women's Health
DX: Z34.90 Encounter for supervision of normal pregnancy, unspecified, unspecified trimester (principal)
CPT/HCPCS: 76817

== ENCOUNTER → 2024-04-12 | Outpatient (CLI) | payer OTHER, SELFPAY ==
[2024-04-12 18:02] LABS: hCG Titer Quant., Serum 86145 mIU/mL (1-3)
== END | disposition home or self-care (01) ==
LOC: LAB 16:57
PROVIDERS: PCP Family Medicine; Referring Provider Obstetrics & Gynecology; Visit Provider Obstetrics & Gynecology
DX: Z34.90 Encounter for supervision of normal pregnancy, unspecified, unspecified trimester (principal); N91.2 Amenorrhea, unspecified; Z87.59 Personal history of other complications of pregnancy, childbirth and the puerperium; Z3A.00 Weeks of gestation of pregnancy not specified
CPT/HCPCS: 36415; 84702

== ENCOUNTER → 2024-04-14 | Outpatient (CLI) | payer OTHER, SELFPAY ==
[2024-04-15 20:09] LABS: Chlamydia By Nucleic Acid AMP Negative (Negative); Gonococcus By Nucleic Acid AMP Negative (Negative)
== END | disposition home or self-care (01) ==
LOC: LABSPEC 11:46
PROVIDERS: PCP Family Medicine; Referring Provider Obstetrics & Gynecology; Visit Provider Obstetrics & Gynecology
DX: Z34.90 Encounter for supervision of normal pregnancy, unspecified, unspecified trimester (principal); Z3A.00 Weeks of gestation of pregnancy not specified
CPT/HCPCS: 87086; 87491; 87591

== ENCOUNTER 2024-04-26 16:46 | Outpatient (CLI) | payer OTHER, SELFPAY | END 2024-04-26 23:59 | disposition home or self-care (01) | LOC: LAB 16:48 | PROVIDERS: PCP Family Medicine; Referring Provider Obstetrics & Gynecology; Visit Provider Obstetrics & Gynecology | DX: O09.90 Supervision of high risk pregnancy, unspecified, unspecified trimester (principal); Z3A.00 Weeks of gestation of pregnancy not specified | CPT/HCPCS: 36415 ==

== ENCOUNTER → 2024-06-03 | Outpatient (CLI) | payer OTHER, SELFPAY ==
[2024-06-03 12:12] LABS: Basophil# 0.01 X10^3/uL; Basophil% 0.1 % (0-1); Eosinophil# 0.13 X10^3/uL; Eosinophils% 1.6 % (0-5); Hematocrit 36.2 % (37-47); Hemoglobin 12.8 g/dL (12.0-15.0); Lymphocyte % 18.4 % (19-41); Mean Corp Hgb Conc 35.4 g/dL (32-36); Mean Corpuscular Hgb 30.8 pg (27.0-32.0); Mean Platelet Vol. 9.9 fl (6.2-12.0); Monocyte# 0.49 X10^3/uL; NRBC Flagged by Analyzer 0 % (0-5); Neutrophil % 73.4 % (47-70); Platelet Count 197 K/mm3 (150-450); RBC Distribution Width SD 40.7 fl (35.1-43.9); Red Blood Count 4.16 M/mm3 (4.2-5.4); White Blood Count 8.2 K/mm3 (4.4-11.0)
[2024-06-03 13:31] LABS: HIV - WCH Non-Reactive (Nonreactive); Hepatitis B Surface Antigen Non-Reactive (Nonreactive); Hepatitis C Antibody Non-Reactive (Nonreactive); Rubella IgG Reactive (Nonreactive); Syphilis Antibodies Non-reactive
== END | disposition home or self-care (01) ==
PROVIDERS: PCP Family Medicine; Referring Provider Obstetrics & Gynecology; Visit Provider Obstetrics & Gynecology
DX: Z34.00 Encounter for supervision of normal first pregnancy, unspecified trimester (principal)
CPT/HCPCS: 36415; 85025; 86703; 86762; 86780; 86803; 86850; 86900; 86901; 87340

== ENCOUNTER → 2024-07-01 | Outpatient (CLI) | payer OTHER, SELFPAY | END | disposition home or self-care (01) | LOC: LABSPEC 08:55 | PROVIDERS: PCP Family Medicine; Referring Provider Advanced Practice Midwife; Visit Provider Advanced Practice Midwife | DX: O26.899 Other specified pregnancy related conditions, unspecified trimester (principal); R30.0 Dysuria; Z3A.00 Weeks of gestation of pregnancy not specified | CPT/HCPCS: 87077; 87086; 87088; 87186 ==

== ENCOUNTER → 2024-08-26 | Outpatient (CLI) | payer OTHER, SELFPAY ==
[2024-08-26 12:07] LABS: Absolute Lymphocyte Count 0.85 X10^3/uL (0.83-4.51); Absolute Neutrophil Count 6.3 X10^3/uL (2.0-7.7); Basophil# 0.01 X10^3/uL; Basophil% 0.1 % (0-1); Eosinophil# 0.07 X10^3/uL; Eosinophils% 0.9 % (0-5); Hematocrit 30.8 % (37-47); Hemoglobin 10.5 g/dL (12.0-15.0); Lymphocyte # 0.85 X10^3/ul (0.83-4.51); Lymphocyte % 11.1 % (19-41); Mean Corp Hgb Conc 34.1 g/dL (32-36); Mean Corpuscular Hgb 29.6 pg (27.0-32.0); Mean Corpuscular Volume 86.8 fL (81-99); Mean Platelet Vol. 9.9 fl (6.2-12.0); Monocyte# 0.45 X10^3/uL; Monocyte% 5.9 % (0-10); NRBC Flagged by Analyzer 0 % (0-5); Neutrophil # 6.25 X10^3/uL (2.7-7.7); Neutrophil % 81.5 % (47-70); Platelet Count 180 K/mm3 (150-450); RBC Distribution Width CV 12.5 % (11.6-14.6); RBC Distribution Width SD 39.3 fl (35.1-43.9); Red Blood Count 3.55 M/mm3 (4.2-5.4); White Blood Count 7.7 K/mm3 (4.4-11.0)
[2024-08-26 12:21] LABS: Glucose Challenge Gest 1H 50g 97 mg/dL (70-140)
[2024-08-26 12:55] LABS: HIV - WCH Non-Reactive (Nonreactive); Syphilis Antibodies Non-reactive
== END | disposition home or self-care (01) ==
LOC: BWCLAB 09:29
PROVIDERS: Nurse Practitioner Women's Health; PCP Family Medicine; Referring Provider Obstetrics & Gynecology; Visit Provider Obstetrics & Gynecology
DX: O26.892 Other specified pregnancy related conditions, second trimester (principal); Z67.91 Unspecified blood type, Rh negative; Z3A.24 24 weeks gestation of pregnancy; Z13.1 Encounter for screening for diabetes mellitus
CPT/HCPCS: 36415; 82950; 85025; 86703; 86780; 86850; 86900; 86901

== ENCOUNTER → 2024-10-20 | Outpatient (CLI) | payer OTHER, SELFPAY ==
--- NOTE | 2024-10-20 14:33 | US_ITS ---
PROCEDURE: OB LIMITED WITH BIOMETRICS 10/20/2024 REASON FOR EXAM: GROWTH US, HX OLIGO TECHNIQUE: Transabdominal obstetric ultrasound performed for biometry. FINDINGS Transabdominal imaging. Single live intrauterine with cardiac activity seen at 157 beats per minute. Presentation is cephalic. Cervix is not visualized. Right and left adnexa appear unremarkable. VINICIUS 10.4 cm, maximum vertical pocket 6.3 cm. Anterior grade 2 placenta appears within limits. DIMENSIONS: Biparietal Diameter: 9.3 cm/37 weeks 5 days Head Circumference: 34.4 cm/39 weeks 5 days Abdominal Circumference: 33.7 cm/37 weeks 4 days Femur Length: 6.7 cm/34 weeks 2 days ESTIMATED WEIGHT: 3060 g +/-459 g ESTIMATED WEIGHT PERCENTILE (24+ weeks): 80% Estimated age by current ultrasound 37 weeks 4 days, JOSEPH 11/06/2024 age by LMP 35 weeks 5 days, JOSEPH 11/19/2024 US/OB Limited With Biometrics IMPRESSION: Single live intrauterine with biometrics as above. Estimated age by current ultrasound 37 weeks 4 days, JOSEPH 11/06/2024 age by LMP 35 weeks 5 days, JOSEPH 11/19/2024 Reading Location: [id number]
== END | disposition home or self-care (01) ==
PROVIDERS: PCP Family Medicine; Referring Provider Advanced Practice Midwife; Visit Provider Advanced Practice Midwife
DX: O09.299 Supervision of pregnancy with other poor reproductive or obstetric history, unspecified trimester (principal); Z3A.00 Weeks of gestation of pregnancy not specified
CPT/HCPCS: 76816

== ENCOUNTER → 2024-10-28 | Outpatient (CLI) | payer OTHER, SELFPAY ==
[2024-10-28 17:45] LABS: Glucose Challenge Gest 1H 50g 96 mg/dL (70-140)
== END | disposition home or self-care (01) ==
LOC: BWCLAB 15:47
PROVIDERS: PCP Family Medicine; Referring Provider Obstetrics & Gynecology; Visit Provider Obstetrics & Gynecology
DX: O36.60X0 Maternal care for excessive fetal growth, unspecified trimester, not applicable or unspecified (principal); Z3A.00 Weeks of gestation of pregnancy not specified
CPT/HCPCS: 36415; 82950; 87081

== ENCOUNTER 2024-10-29 22:45 | Outpatient (CLI) | payer OTHER, SELFPAY ==
[2024-10-29 23:03] VITALS: BP 119/66; PULSE 91; RESP 16; TEMP 36.1
[2024-10-29 23:04] VITALS: O2SAT 98
[2024-10-29 23:24] VITALS: BMI 32.5
[2024-10-29 23:59] LABS: ROM Internal Control Test YES-OK TO RESULT pt. (Internal QC); ROM Patient Test Negative (Negative); Record Kit Lot#, ROM+ K3294
[2024-10-30 00:16] LABS: Color, Urine Yellow (Yellow); Glucose, Dipstick Normal (Normal); Ketone-Dipstick Negative (Negative); Leukocyte Esterase-Dipstick 25 /ul (Negative); Nitrite-Dipstick Negative (Negative); Occult Blood-Urine 250 /ul (Negative); Protein-Dipstick 30 mg/dl (Negative); Specific Gravity, Urine 1.025 (1.002-1.030); Urine Bilirubin Dipstick Negative (Negative); Urine Clarity Cloudy (Clear); Urine Urobilinogen Normal (Normal)
[2024-10-30] MEDS: Phenazopyridine 95 MG Tablet 190 MG PO (01:03)
[2024-10-30] MEDS: Nitrofurantoin Macrocrystals 100 MG Capsule PO (01:03)
--- NOTE | 2024-10-30 08:09 | OB.TRI.HP_ITS ---
HPI - General HPI Narrative SHAHZAD FITZGERALD, is a 29 F who presents at 37 weeks with questionable lof. irregular contractions. no vb. does note increased burning and urgency with urination along with discomfort during voids. Maternal Data Information JOSEPH Calculator Estimated Delivery Date Method Current WG Current Estimate 11/19/24 Ultrasound #1 37w 1d Other Estimates 12/09/24 LMP (Uncertain) 34w 2d PFSH PFSH Medical History Oligohydramnios Kidney stones Chronic urinary tract infection Genital herpes Home Medications ?Medication ?Instructions ?Recorded ?Last Taken ?Type docosahexaenoic acid 200 mg 1 mg PO 11/19/22 06/25/23 20:00 History capsule ( DHA) citalopram 40 mg tablet 40 mg PO DAILY #30 tabs 03/28 03/20 Unknown Rx doxylamine succinate 25 mg tablet 25 mg PO QHS PRN 02/17 Unknown History (Unisom (doxylamine)) ondansetron 4 mg disintegrating 4 mg PO Q8H PRN nausea and 06/03/24 Unknown Rx tablet vomiting #60 tabs valacyclovir 500 mg tablet 500 mg PO DAILY PRN Herpes #30 10/22/24 Unknown Rx (Valtrex) tabs nitrofurantoin 100 mg PO Q12H 7 days #14 ca ps 10/30/24 Unknown Rx monohydrate/macrocrystals 100 mg capsule (Macrobid) Allergy/AdvReac Type Severity Reaction Status Date / Time No Known Allergies Allergy Verified 10/28/24 15:44 Family History Grandmother Diabetes Heart disease Surgical History H/O unilateral salpingectomy History of placement of ear tubes S/P bunionectomy Social History adopted: No household members: spouse and children housing: house number of children: 1 current occupational status: employed current occupation: [employer] history of recent travel: No Smoking Status: Former smoker how long ago did patient quit smoking: stopped using vape when she found out she was second hand exposure: No substance use type: does not use caffeine: Yes what type of physical activity do you participate in: none seatbelt use: always do you feel safe at home: Yes additional social history: - Zeeshan Patient works at [employer] History 4 Elective abortions Hx Para 1 Spontaneous abortions Hx # Term Pregnancies Ectopic pregnancies 1 Hx # Pregnancies Multiple births # of living children 1 Past Pregnancies Del. Date Name GA/Weeks Outcome Route Bth Weight Infant Gen Labor Lgth Anesthesia Del Locatn Provider FOB 06/27/23 Itzel 38 live - full term [facility] Marctavaresony Delivery Date: 06/27/23 Last Updated by: Amy Boyle IOL oligo Visit Details Expected Delivery Route/Plan Labor Preferences- CB/BF classes: [] labor support person: [] labor intervention preferences: [] pain management options preferred: [] cut cord/dad catch: [] : [] PP control planned: [] discussed possible routes of delivery and associated risks: [] special requests: [] Plans Covid status: [] Flu vaccine: [] Tdap vaccine: [] Rhogam: [] LARC form signed: [] Problem list reviewed and updated with the most current plan of care details and appropriate orders placed. Relevant counseling for the gestational age provided. Continue routine care and follow up unless otherwise noted in visit notes/problem list details OB Flowsheet Initial Weight: Not Recorded Date -?-?-?-?-?-?-?-?-?-?-?-?- EGA Weight BP Urine Prot -?-?-?-?-?-?-?-?-?-?-?-?- Glucose FHR FuHt Pres Dilation -?-?-?-?-?-?-?-?-?-?-?-?- Effaced St Visit Note 04/14/24 -?-?-?-?-?-?-?-?-?-?-?-?- 8w 5d 156 lb 129/75 -?-?-?-?-?-?-?-?-?-?-?-?- 155 -?-?-?-?-?-?-?-?-?-?-?-?- SM- CRL cons wit h previous ultrasound 06/03/24 -?-?-?-?-?-?-?-?-?-?-?-?- 15w 6d 151 lb 8 oz 110/73 Nega tive -?-?--?-?-?-?-?-?-?-?-?-?- Negative 150 -?-?-?-?-?-?-?-?-?-?-?-?- SM no vb lof goo d fm still having nausea 07/01/24 -?-?-?-?-?-?-?-?-?-?-?-?- 19w 6d 161 lb 102/64 Negative -?-?-?-?-?-?-?-?-?-?-?-?- Negative 150 20 -?-?-?-?-?-?-?-?-?-?-?-?- KW- no vb/crampi ng. some movement noted. US next thurs. ATB for UTI 08/05/24 -?-?-?-?-?-?-?-?-?-?-?-?- 24w 6d 173 lb 116/72 Negative -?-?-?-?-?-?-?-?-?-?-?-?- Negative 143 24 -?-?-?-?--?-?-?-?-?-?-?-?- MH-No VB, LOF. G ood FM. Denies concerns. 08/26/24 -?-?-?-?-?-?-?-?-?-?-?-?- 27w 6d 174 lb 126/79 Negative -?-?-?-?-?-?-?-?-?-?-?-?- Negative 140 28 -?-?-?-?-?-?-?-?-?-?-?-?- SM- no vb lof go od fm n oregular ctx cbc gct rhogam today 09/09/24 -?-?-?-?-?-?-?-?-?-?-?-?- 29w 6d 174 lb 103/67 Negative -?-?-?-?-?-?-?-?-?-?-?-?- Negative 141 29 -?-?-?-?-?-?-?-?-?-?-?-?- JV- no complaint s today. wanted to go over anatomy scan from june. all is normal. plans to do tdap next visit. 09/23/24 -?-?-?-?-?-?-?-?-?-?-?-?- 31w 6d 178 lb 2 oz 113/76 Nega tive -?-?-?-?-?-?-?-?-?-?-?-?- Negative 140 31 -?-?-?-?-?-?-?-?-?-?-?-?- KW- no vb/lof/ct x. good fm. Tdap and LARC today 10/07/24 -?-?-?-?-?-?-?-?-?-?-?-?- 33w 6d 178 lb 4 oz 112/77 Nega tive -?-?-?-?-?-?-?-?-?-?-?-?- Negative 155 34 -?-?-?-?-?-?-?-?-?-?-?-?- KW- no vb/lof/ct x. good fm. GBS next week. safe meds reviewed for cold 10/20/24 -?-?-?-?-?-?-?-?-?-?-?-?- 35w 5d 181 lb 4 oz 130/82 Nega tive -?-?-?-?-?-?-?-?-?-?-?-?- Negative 145 35.5 -?-?-?-?-?-?-?-?-?-?-?-?- JV- ultrasound s hows AC 95th%, repeating GCT . 10/28/24 -?-?-?-?-?-?-?-?-?-?-?-?- 36w 6d 183 lb 2 oz 114/76 Nega tive -?-?-?-?-?-?-?-?-?-?-?-?- Negative 140 36 Cephalic 3 -?-?-?-?-?-?-?-?-?-?-?-?- 60 -2 KW- work i n for JV. no vb/lof/ctx. good fm. GBS today. NST FHR Rate Baby A Baseline: 120 Variability:: Moderate Accelerations:: 15 x 15 Decelerations:: None NST Reactive:: Yes FHR Category:: Category I Uterine Activity:: irreg Assessment & Plan (1) UTI (urinary tract infection): COMMENT: macrobid. culture pending. (2) No leakage of amniotic fluid into vagina: COMMENT: rom plus negative. cat 1 tracing. no change in cervical exam. d/c home PLAN: Plan Patient presents for triage evaluation secondary to questionable lof. when urinating had increased burning and discomfort. urinalysis sent and consistent with UTI. FHT: Moderate variability reactive no decelerations category I tracing [place]: irreg Contractions Assessment and plan: Reactive NST, reassuring maternal and status patient discharged to home to follow-up in office, macrobid for uti. See problem list details for additional plan information. Charges/Coding Procedures Urinary/Genital 52xxx-59xxx: 07883-18 non-stress test Interp
--- NOTE | 2024-10-30 08:09 | OB.TRI.NOTE ---
HPI - General HPI Narrative SHAHZAD FITZGERALD, is a 29 F who presents at 37 weeks with questionable lof. irregular contractions. no vb. does note increased burning and urgency with urination along with discomfort during voids. Maternal Data Information JOSEPH Calculator Estimated Delivery Date Method Current WG Current Estimate 11/19/24 Ultrasound #1 37w 1d Other Estimates 12/09/24 LMP (Uncertain) 34w 2d PFSH PFSH Medical History Oligohydramnios Kidney stones Chronic urinary tract infection Genital herpes Home Medications ?Medication ?Instructions ?Recorded ?Last Taken ?Type docosahexaenoic acid 200 mg 1 mg PO 11/19/22 06/25/23 20:00 History capsule ( DHA) citalopram 40 mg tablet 40 mg PO DAILY #30 tabs 04/14/24 Unknown Rx doxylamine succinate 25 mg tablet 25 mg PO QHS PRN 06/03/24 Unknown History (Unisom (doxylamine)) ondansetron 4 mg disintegrating 4 mg PO Q8H PRN nausea and 06/03/24 Unknown Rx tablet vomiting #60 tabs valacyclovir 500 mg tablet 500 mg PO DAILY PRN Herpes #30 10/22/24 Unknown Rx (Valtrex) tabs nitrofurantoin 100 mg PO Q12H 7 days #14 caps 10/30/24 Unknown Rx monohydrate/macrocrystals 100 mg capsule (Macrobid) Allergy/AdvReac Type Severity Reaction Status Date / Time No Known Allergies Allergy Verified 10/28/24 15:44 Family History Grandmother Diabetes Heart disease Surgical History H/O unilateral salpingectomy History of placement of ear tubes S/P bunionectomy Social History adopted: No household members: spouse and children housing: house number of children: 1 current occupational status: employed current occupation: [employer] history of recent travel: No Smoking Status: Former smoker how long ago did patient quit smoking: stopped using vape when she found out she was second hand exposure: No substance use type: does not use caffeine: Yes what type of physical activity do you participate in: none seatbelt use: always do you feel safe at home: Yes additional social history: - Zeeshan Patient works at [employer] History 4 Elective abortions Hx Para 1 Spontaneous abortions Hx # Term Pregnancies Ectopic pregnancies 1 Hx # Pregnancies Multiple births # of living children 1 Past Pregnancies Del. Date Name GA/Weeks Outcome Route Bth Weight Infant Gen Labor Lgth Anesthesia Agustín Jinatlisa Provider FOB 06/27/23 Itzel 38 live - full term [facility] Marcanthony Delivery Date: 06/27/23 Last Updated by: Amy Boyle IOL oligo Visit Details Expected Delivery Route/Plan Labor Preferences- CB/BF classes: [] labor support person: [] labor intervention preferences: [] pain management options preferred: [] cut cord/dad catch: [] : [] PP control planned: [] discussed possible routes of delivery and associated risks: [] special requests: [] Plans Covid status: [] Flu vaccine: [] Tdap vaccine: [] Rhogam: [] LARC form signed: [] Problem list reviewed and updated with the most current plan of care details and appropriate orders placed. Relevant counseling for the gestational age provided. Continue routine care and follow up unless otherwise noted in visit notes/problem list details OB Flowsheet Initial Weight: Not Recorded Date <del>?</del> EGA Weight BP Urine Prot <del>?</del> Glucose FHR FuHt Pres Dilation <del>?</del> Effaced St Visit Note 04/14/24 <del>?</del> 8w 5d 156 lb 129/75 <del>?</del> 155 <del>?</del> SM- CRL cons with previous ultrasound 06/03/24 <del>?</del> 15w 6d 151 lb 8 oz 110/73 Negative <del>?</del> Negative 150 <del>?</del> SM no vb lof good fm still having nausea 07/01/24 <del>?</del> 19w 6d 161 lb 102/64 Negative <del>?</del> Negative 150 20 <del>?</del> KW- no vb/cramping. some movement noted. US next thurs. ATB for UTI 08/05/24 <del>?</del> 24w 6d 173 lb 116/72 Negative <del>?</del> Negative 143 24 <del>?</del> MH-No VB, LOF. Good FM. Denies concerns. 08/26/24 <del>?</del> 27w 6d 174 lb 126/79 Negative <del>?</del> Negative 140 28 <del>?</del> SM- no vb lof good fm n oregular ctx cbc gct rhogam today 09/09/24 <del>?</del> 29w 6d 174 lb 103/67 Negative <del>?</del> Negative 141 29 <del>?</del> JV- no complaints today. wanted to go over anatomy scan from june. all is normal. plans to do tdap next visit. 09/23/24 <del>?</del> 31w 6d 178 lb 2 oz 113/76 Negative <del>?</del> Negative 140 31 <del>?</del> KW- no vb/lof/ctx. good fm. Tdap and LARC today 10/07/24 <del>?</del> 33w 6d 178 lb 4 oz 112/77 Negative <del>?</del> Negative 155 34 <del>?</del> KW- no vb/lof/ctx. good fm. GBS next week. safe meds reviewed for cold 10/20/24 <del>?</del> 35w 5d 181 lb 4 oz 130/82 Negative <del>?</del> Negative 145 35.5 <del>?</del> JV- ultrasound shows AC 95th%, repeating GCT . 10/28/24 <del>?</del> 36w 6d 183 lb 2 oz 114/76 Negative <del>?</del> Negative 140 36 Cephalic 3 <del>?</del> 60 -2 KW- work in for JV. no vb/lof/ctx. good fm. GBS today. NST FHR Rate Baby A Baseline: 120 Variability:: Moderate Accelerations:: 15 x 15 Decelerations:: None NST Reactive:: Yes FHR Category:: Category I Uterine Activity:: irreg Assessment & Plan (1) UTI (urinary tract infection): COMMENT: macrobid. culture pending. (2) No leakage of amniotic fluid into vagina: COMMENT: rom plus negative. cat 1 tracing. no change in cervical exam. d/c home PLAN: Plan Patient presents for triage evaluation secondary to questionable lof. when urinating had increased burning and discomfort. urinalysis sent and consistent with UTI. FHT: Moderate variability reactive no decelerations category I tracing [place]: irreg Contractions Assessment and plan: Reactive NST, reassuring maternal and status patient discharged to home to follow-up in office, macrobid for uti. See problem list details for additional plan information. Charges/Coding Procedures Urinary/Genital 52xxx-59xxx: 00741-05 non-stress test Interp
== END 2024-10-30 01:06 | disposition home or self-care (01) ==
LOC: WPOUT 22:56 → WP 22:57
PROVIDERS: PCP Family Medicine; Visit Provider Registered Nurse
DX: O23.43 Unspecified infection of urinary tract in pregnancy, third trimester (principal); R39.15 Urgency of urination; O98.313 Other infections with a predominantly sexual mode of transmission complicating pregnancy, third trimester; A60.00 Herpesviral infection of urogenital system, unspecified; Z3A.37 37 weeks gestation of pregnancy; Z79.899 Other long term (current) drug therapy; Z87.891 Personal history of nicotine dependence
CPT/HCPCS: 59025; 59050; 81002; 84112; 99221; G0378

== ENCOUNTER 2024-11-03 14:40 | Outpatient (CLI) | payer OTHER, SELFPAY ==
--- NOTE | 2024-11-03 14:46 | US_ITS ---
EXAM: OB LIMITED (NO BIOMETRICS) (USOBL) 11/03/2024 CLINICAL HISTORY: VINICIUS COMPARISON: 10/20/2024 TECHNIQUE: A limited transabdominal obstetrical ultrasound was performed to determine biophysical profile score. FINDINGS: Gravid uterus with a single fetus. Amniotic Fluid Index: 18.0 (normal 5-25), deepest vertical pocket 7.1 (normal 2-8). presentation: Cephalic. heart rate: Regular,, 121-130 bpm. Placenta: Anterior. Cervix not well seen, probably due to shadowing related to the calvarium. US/OB Limited (No Biometrics) IMPRESSION: 1. Amniotic fluid index is 18.0, within normal limits. 2. Additional description as above. Reading Location: [id number]
[2024-11-03 15:45] LABS: ROM Internal Control Test YES-OK TO RESULT pt. (Internal QC); ROM Patient Test Negative (Negative)
[2024-11-03 15:53] VITALS: BP 109/64; PULSE 80; RESP 16; TEMP 36.6
[2024-11-03 15:54] VITALS: PULSE 82; O2SAT 96
[2024-11-03 15:56] VITALS: BMI 33.4
--- NOTE | 2024-11-10 22:31 | OB.TRI.PN ---
Progress Notes Date of Service: 11/02/24 Progress Note: Patient presents for triage evaluation secondary to possibe lof FHT: 140 Moderate variability reactive no decelerations category I tracing [place]: no regular Contractions Assessment and plan: false labor 37 weeks intact amnoinitic membranes Reactive NST, reassuring maternal and status patient discharged to home to follow-up as shceduled. See problem list details for additional plan information. Laboratory Studies: Laboratory Tests 11/03/24 Range/Units 15:10 Vag Amniotic Fld Detect Negative (Negative) Charges/Coding Procedures Urinary/Genital 52xxx-59xxx: 02127-82 non-stress test Interp Assessment & Plan (1) Intact amniotic membranes: (2) 37 weeks gestation of :
== END 2024-11-03 16:40 | disposition home or self-care (01) ==
LOC: WPOUT 14:45 → WP 14:46
PROVIDERS: PCP Family Medicine; Referring Provider Obstetrics & Gynecology; Visit Provider Obstetrics & Gynecology
DX: O47.1 False labor at or after 37 completed weeks of gestation (principal); Z3A.37 37 weeks gestation of pregnancy
CPT/HCPCS: 59025; 59050; 76815; 84112; 99221; G0378

== ENCOUNTER 2024-11-09 03:38 | Inpatient (IN) | payer OTHER, SELFPAY ==
[2024-11-09] VITALS (43 sets, daily range): BP systolic 114–156; BP diastolic 55–98; PULSE 60–149; RESP 16–18; TEMP 36.2–36.8; O2SAT 83–99; BMI 34.2
[2024-11-09] MEDS: Lactated Ringers 1,000 ML 999 ML IV (03:40)
[2024-11-09 04:07] LABS: Absolute Lymphocyte Count 1.28 X10^3/uL (0.83-4.51); Absolute Neutrophil Count 9.2 X10^3/uL (2.0-7.7); Basophil# 0.01 X10^3/uL; Basophil% 0.1 % (0-1); Eosinophil# 0.07 X10^3/uL; Eosinophils% 0.6 % (0-5); Hematocrit 32.8 % (37-47); Hemoglobin 11.2 g/dL (12.0-15.0); Lymphocyte # 1.28 X10^3/ul (0.83-4.51); Lymphocyte % 11.3 % (19-41); Mean Corp Hgb Conc 34.1 g/dL (32-36); Mean Corpuscular Hgb 29.5 pg (27.0-32.0); Mean Corpuscular Volume 86.3 fL (81-99); Mean Platelet Vol. 9.9 fl (6.2-12.0); Monocyte# 0.69 X10^3/uL; Monocyte% 6.1 % (0-10); NRBC Flagged by Analyzer 0 % (0-5); Neutrophil # 9.22 X10^3/uL (2.7-7.7); Neutrophil % 81.5 % (47-70); Platelet Count 133 K/mm3 (150-450); RBC Distribution Width CV 15.1 % (11.6-14.6); RBC Distribution Width SD 47.4 fl (35.1-43.9); White Blood Count 11.3 K/mm3 (4.4-11.0)
[2024-11-09] MEDS: Oxytocin 10 UNITS/ML Vial IM (04:13)
[2024-11-09] MEDS: Methylergonovine 0.2 MG/ML Ampul IM (04:16)
[2024-11-09] MEDS: Oxytocin 15 Units/NS 250ml 15 UNITS/250 ML IV.SOLN 334 UNITS IV (04:18)
[2024-11-09] MEDS: Carboprost Tromethamine 250 MCG/ML Ampul IM (04:22)
[2024-11-09 04:23] LABS: Syphilis Antibodies Nonreactive (Nonreactive)
[2024-11-09] MEDS: Lidocaine 1% (20 ml mdv) 20 ML Vial INFILT (04:24)
--- NOTE | 2024-11-09 05:27 | HP.PCM.OB_ITS ---
HPI - General General Date of Admission: 11/09/24 HPI Narrative SHAHZAD FITZGERALD, is a 29 F who presents in active labor delivered precipitously she presented at 78 cm and delivered within an hour. Maternal Data Information JOSEPH Calculator Estimated Delivery Date Method Current WG Current Estimate 11/19/24 Ultrasound #1 38w 4d Other Estimates 12/09/24 LMP (Uncertain) 35w 5d PFSH PFSH Medical History (Updated 11/09/24 @ 05:[address] Christen Swartz MD) depression Oligohydramnios Kidney stones Chronic urinary tract infection Genital herpes Home Medications ?Medication ?Instructions ?Recorded ?Last Taken ?Type citalopram 40 mg tablet 40 mg PO DAILY ask physician #30 04/14/24 11/02/24 21:00 Rx tabs 40 mg doxylamine succinate 25 mg tablet 25 mg PO QHS PRN sle ep 06/03/24 Unknown History (Unisom (doxylamine)) ondansetron 4 mg disintegrating 4 mg PO Q8H PRN nausea and 06/03/24 Unknown Rx tablet vomiting #60 tabs valacyclovir 500 mg tablet 500 mg PO DAILY PRN Herpes #30 10/22/24 11/01/24 21:00 Rx (Valtrex) tabs 500 mg vit no.95-ferrous 1 tab PO DAILY 11/02/24 21:00 History fumarate 28 mg-folic acid 800 mcg 1 TA B tablet () Allergy/AdvReac Type Severity Reaction Status Date / Time No Known Allergies Allergy Verified 11/09/24 03:39 Family History Grandmother Diabetes Heart disease Surgical History H/O unilateral salpingectomy History of placement of ear tubes S/P bunionectomy Social History adopted: No household members: spouse and children housing: house number of children: 1 current occupational status: employed current occupation: [employer] history of recent travel: No Smoking Status: Former smoker how long ago did patient quit smoking: stopped using vape when she found out she was second hand exposure: No substance use type: does not use caffeine: Yes what type of physical activity do you participate in: none seatbelt use: always do you feel safe at home: Yes additional social history: - Zeeshan Patient works at [employer] History 4 Elective abortions Hx Para 1 Spontaneous abortions Hx # Term Pregnancies Ectopic pregnancies 1 Hx # Pregnancies Multiple births # of living children 1 Past Pregnancies Del. Date Name GA/Weeks Outcome Route Bth Weight Infant Gen Labor Lgth Anesthesia Del Locatn Provider FOB 06/27/23 Itzel 38 live - full term [facility] Marcanthony Delivery Date: 06/27/23 Last Updated by: Amy Boyle IOL oligo Visit Details Expected Delivery Route/Plan Labor Preferences- CB/BF classes: [] labor support person: [] labor intervention preferences: [] pain management options preferred: [] cut cord/dad catch: [] : [] PP control planned: [] discussed possible routes of delivery and associated risks: [] special requests: [] Plans Covid status: [] Flu vaccine: [] Tdap vaccine: [] Rhogam: [] LARC form signed: [] Problem list reviewed and updated with the most current plan of care details and appropriate orders placed. Relevant counseling for the gestational age provided. Continue routine care and follow up unless otherwise noted in visit notes/problem list details OB Flowsheet Initial Weight: Not Recorded Date -?-?-?-?-?-?-?-?-?-?-?-?- EGA Weight BP Urine Prot -?-?-?-?-?-?-?-?-?-?-?-?- Glucose FHR FuHt Pres Dilation -?-?-?-?-?-?-?-?-?-?-?-?- Effaced St Visit Note 04/14/24 -?-?-?-?-?-?-?-?-?-?-?-?- 8w 5d 156 lb 129/75 -?-?-?-?-?-?-?-?-?-?-?-?- 155 -?-?-?-?-?-?-?-?-?-?-?-?- SM- CRL cons wit h previous ultrasound 06/03/24 -?-?-?-?-?-?-?-?-?-?-?-?- 15w 6d 151 lb 8 oz 110/73 Nega tive -?-?-?-?-?-?-?-?-?-?-?-?- Negative 150 -?-?-?-?-?-?-?-?-?-?-?-?- SM no vb lof goo d fm still having nausea 07/01/24 -?-?-?-?-?-?-?-?-?-?-?-?- 19w 6d 161 lb 102/64 Negative -?-?-?-?-?-?-?-?-?-?-?-?- Negative 150 20 -?-?-?-?-?-?-?-?-?-?-?-?- KW- no vb/crampi ng. some movement noted. US next thurs. ATB for UTI 08/05/24 -?-?-?-?-?-?-?-?-?-?-?-?- 24w 6d 173 lb 116/72 Negative -?-?-?-?-?-?-?-?-?-?-?-?- Negative 143 24 -?-?-?-?-?-?-?-?-?-?-?-?- MH-No VB, LOF. G ood FM. Denies concerns. 08/26/24 -?-?-?-?-?-?-?-?-?-?-?-?- 27w 6d 174 lb 126/79 Negative -?-?-?-?-?-?-?-?-?-?-?-?- Negative 140 28 -?-?-?-?-?-?-?-?-?-?-?-?- SM- no vb lof go od fm n oregular ctx cbc gct rhogam today 09/09/24 -?-?-?-?-?-?-?-?-?-?-?-?- 29w 6d 174 lb 103/67 Negative -?-?-?-?-?-?-?-?-?-?-?-?- Negative 141 29 -?-?-?-?-?-?-?-?-?-?-?-?- JV- no complaint s today. wanted to go over anatomy scan from june. all is normal. plans to do tdap next visit. 09/23/24 -?-?-?-?-?-?-?-?-?-?-?-?- 31w 6d 178 lb 2 oz 113/76 Nega tive -?-?-?-?-?-?-?-?-?-?-?-?- Negative 140 31 -?-?-?-?-?-?-?-?-?-?-?-?- KW- no vb/lof/ct x. good fm. Tdap and LARC today 10/07/24 -?-?-?-?-?-?-?-?-?-?-?-?- 33w 6d 178 lb 4 oz 112/77 Nega tive -?-?-?-?-?-?-?-?-?-?-?-?- Negative 155 34 -?-?-?-?-?-?-?-?-?-?-?-?- KW- no vb/lof/ct x. good fm. GBS next week. safe meds reviewed for cold 10/20/24 -?-?-?-?-?-?-?-?-?-?-?-?- 35w 5d 181 lb 4 oz 130/82 Nega tive -?-?-?-?-?-?-?-?-?-?-?-?- Negative 145 35.5 -?-?-?-?-?-?-?-?--?-?-?-?- JV- ultrasound s hows AC 95th%, repeating GCT . 10/28/24 -?-?-?-?-?-?-?-?-?-?-?-?- 36w 6d 183 lb 2 oz 114/76 Nega tive -?-?-?-?-?-?-?-?-?-?-?-?- Negative 140 36 Cephalic 3 -?-?-?-?-?-?-?-?-?-?-?-?- 60 -2 KW- work i n for JV. no vb/lof/ctx. good fm. GBS today. 11/05/24 -?-?-?-?-?-?-?-?-?-?-?-?- 38w 0d 184 lb 2 oz 128/81 Nega tive -?-?-?-?-?-?-?-?-?-?-?-?- Negative 142 38 Cephalic 4 -?-?-?-?-?-?-?-?-?-?-?-?- 80 -2 JV- no lof , vaginal bleeding, or dec fm. was on L&D for possible LOF recently. rom plus was neg. last VINICIUS was 18 NST FHR Rate Baby A Baseline: 140 Variability:: Moderate Uterine Activity:: q3-5 ROS Constitutional Constitutional: Reports systems reviewed and no addt'l complaints, except as documented ENT HEENT: Reports systems reviewed and no addt'l complaints, except as documented Cardiovascular Cardiovascular: Reports systems reviewed and no addt'l complaints, except as documented Respiratory/Chest Respiratory/Chest: Reports systems reviewed and no addt'l complaints, except as documented Gastrointestinal Gastrointestinal: Reports systems reviewed and no addt'l complaints, except as documented and nausea; Denies abdominal pain Genitourinary Genitourinary: Reports systems reviewed and no addt'l complaints, except as documented, contractions Details: present and frequency (regular ) and movement Details: present Musculoskeletal Musculoskeletal: Reports systems reviewed and no addt'l complaints, except as documented Integumentary Integumentary: Reports as per HPI Neurologic Neurologic: Reports systems reviewed and no addt'l complaints, except as documented Endocrine Endocrinology: Reports systems reviewed and no addt'l complaints, except as documented Vital Signs Vital Signs Vital Signs: 11/09/24 03:33 11/09/24 03:33 11/09/24 04:04 Temperature Temperature Source Pulse Rate 78 120 H Respiratory Rate Blood Pressure 132/84 H BP Systolic 132 BP Diastolic 84 Pulse Ox 11/09/24 04:04 11/09/24 04:12 11/09/24 04:12 Temperature Temperature Source Pulse Rate 149 H Respiratory Rate Blood Pressure BP Systolic BP Diastolic Pulse Ox 99 83 11/09/24 04:34 11/09/24 04:34 11/09/24 04:34 Temperature Temperature Source Temporal Pulse Rate 77 Respiratory Rate Blood Pressure BP Systolic BP Diastolic Pulse Ox 94 11/09/24 04:34 11/09/24 04:34 11/09/24 04:35 Temperature 98.0 F Temperature Source Pulse Rate Respiratory Rate 18 Blood Pressure 136/66 H BP Systolic 136 BP Diastolic 66 Pulse Ox 11/09/24 04:35 11/09/24 04:35 11/09/24 04:40 Temperature Temperature Source Pulse Rate 75 78 Respiratory Rate Blood Pressure BP Systolic BP Diastolic Pulse Ox 95 11/09/24 04:40 11/09/24 04:45 11/09/24 04:45 Temperature Temperature Source Pulse Rate 74 Respiratory Rate Blood Pressure BP Systolic BP Diastolic Pulse Ox 94 96 11/09/24 04:47 11/09/24 04:47 11/09/24 04:49 Temperature Temperature Source Pulse Rate 72 Respiratory Rate Blood Pressure 139/87 H BP Systolic 139 BP Diastolic 87 Pulse Ox 94 11/09/24 04:49 11/09/24 04:49 11/09/24 04:49 Temperature Temperature Source Temporal Pulse Rate 66 Respiratory Rate 16 Blood Pressure BP Systolic BP Diastolic Pulse Ox 11/09/24 04:49 11/09/24 04:50 11/09/24 04:50 Temperature 97.6 F L Temperature Source Pulse Rate 78 Respiratory Rate Blood Pressure BP Systolic BP Diastolic Pulse Ox 96 11/09/24 04:55 11/09/24 04:55 11/09/24 05:00 Temperature Temperature Source Pulse Rate 76 82 Respiratory Rate Blood Pressure BP Systolic BP Diastolic Pulse Ox 97 11/09/24 05:00 11/09/24 05:06 11/09/24 05:06 Temperature Temperature Source Pulse Rate 78 Respiratory Rate Blood Pressure BP Systolic BP Diastolic Pulse Ox 98 97 11/09/24 05:06 11/09/24 05:11 11/09/24 05:11 Temperature Temperature Source Pulse Rate 71 Respiratory Rate 16 Blood Pressure BP Systolic BP Diastolic Pulse Ox 98 11/09/24 05:15 11/09/24 05:15 11/09/24 05:16 Temperature Temperature Source Pulse Rate 63 68 Respiratory Rate Blood Pressure 136/64 H BP Systolic 136 BP Diastolic 64 Pulse Ox 11/09/24 05:16 11/09/24 05:19 11/09/24 05:19 Temperature Temperature Source Pulse Rate 70 Respiratory Rate Blood Pressure 156/77 H BP Systolic 156 BP Diastolic 77 Pulse Ox 97 11/09/24 05:21 11/09/24 05:21 Temperature Temperature Source Pulse Rate 74 Respiratory Rate Blood Pressure BP Systolic BP Diastolic Pulse Ox 96 Weight Weight: 187 lb Body Mass Index (BMI) 34.2 Physical Exam Const alert, oriented x3 and healthy appearing Constitutional Narrative: uncomfortable with contractions HEENT normocephalic and moist oral mucous membranes Head and Scalp: atraumatic Neck full ROM, no lymphadenopathy, supple and thyroid normal General: trachea midline Thyroid: thyroid normal Lymph Lymphatic: no lymphadenopathy noted Chest inspection of chest normal Resp normal respiratory effort Cardio regular rate GI soft to palpation and non-tender GI Narrative: gravid Inspection: gravid external exam normal Bimanual Exam - Vag & Uterus: uterus non-tender Manual OB Exam: estimated gestational size appropriate, presentation cephalic, dilated, effaced and station Extremity normal to inspection General Extremity: Negative for edema Skin no rashes or lesions noted Neuro deep tendon reflexes 2+ bilaterally Motor Exam: strength 5/5 throughout and clonus absent Psych mental status grossly normal Labs Labs Labs: Blood Type A NEGATIVE Antibody Screen NEGATIVE Hct 32.8 % (37-47) L Hgb 11.2 g/dL (12.0-15.0) L Obstetrics Ultrasound Syphilis Total Ab Nonreactive (Nonreactive) Rubella IgG Antibody Reactive (Nonreactive) Hep Bs Antigen Non-Reactive (Nonreactive) Hepatitis C Antibody Non-Reactive (Nonreactive) Chlamydia DNA (NATHANIEL) Negative (Negative) N.gonorrhoeae DNA (NATHANIEL) Negative (Negative) HIV 1&2 Antibody Non-Reactive (Nonreactive) Glucose 1 Hr 50 gm 96 mg/dL (70-140) Miscellaneous Test Assessment & Plan (1) : QUALIFIERS: Weeks of gestation: 38 weeks Qualified Code(s): Z3A.38 - 38 weeks gestation of COMMENT: Neg GBS. normal anatomy LR NIPT, carrier declined. afp neg (2) History of oligohydramnios in prior , currently : COMMENT: growth US at 36 weeks-VINICIUS nl. EFW-80% AC 94% (3) Short interval between pregnancies affecting , antepartum: COMMENT: 5 months (4) Supervision of high-risk : QUALIFIERS: Trimester: second trimester Qualified Code(s): O09.92 - Supervision of high risk , unspecified, second trimester COMMENT: girl JOSEPH 11/19/24 PC Yovani Zeeshan (5) Anxiety and depression: COMMENT: celexa, encouraged counseling (6) Rh negative status during : QUALIFIERS: Trimester: first trimester Qualified Code(s): O26.891 - Other specified related conditions, first trimester; Z67.91 - Unspecified blood type, Rh negative COMMENT: fetus is rh negative on NIPT, no rhogam indicated. (7) Active labor at term: PLAN: Plan Admit in active labor for vaginal delivery
--- NOTE | 2024-11-09 05:28 | OB.VAGDELI_ITS ---
Assessment & Plan (1) Vaginal delivery: COMMENT: SM girl Sherry 38 weeks precipitous Maternal Data Information JOSEPH Calculator Estimated Delivery Date Method Current WG Current Estimate 11/19/24 Ultrasound #1 38w 4d Other Estimates 12/09/24 LMP (Uncertain) 35w 5d Vaginal Delivery Maternal Presentation Maternal Presentation: see assessment and plan Vaginal Delivery Information Procedure Performed: Spontaneous Vaginal Delivery Surgeon/Practitioner: Christen Swartz Pre-Procedure Diagnosis: see assessment and plan Post-Procedure Diagnosis: same Type of anesthesia: Epidural Special Medications: Methergine Hemabate Estimated Blood Loss: 500 Findings Description of procedure: Patient began pushing and delivered the head in the NIDA presentation delivered in hands and knees. The head was delivered atraumatically and a tight nuchal cord that the delivered through was noted. The anterior and posterior shoulders delivered without complication followed by the rest of the infant and the infant was placed on the maternal abdomen. Delayed cord clamping was employed for approximately 60 seconds. Cord was clamped and cut and gentle traction was applied to the cord and the placenta delivered spontaneously immediately following it was noted to be intact with three-vessel cord. The perineum and vagina were inspected and was noted to have a first-degree laceration that was repaired in the usual fashion with 3-0 vicryl rapide after injecting with lidocaine locally. EBL was 500 she had mild atony that was treated with massage Hemabate and Methergine and Pitocin. Patient and infant tolerated delivery well. Presentation: Vertex Placental Delivery Description: Spontaneous Specimen collected: Yes Description of specimen(s) removed: placenta Chinese Medicine Practitioner order entry specialist: No Post Vaginal Deli Medications given after delivery: Other (pitocin) Complication Complications: No Multi Select Codes Urinary/Genital Urinary/Genital CPT Codes: 38954 Vaginal Delivery [facility]
--- NOTE | 2024-11-09 05:30 | DCINST_ITS ---
Discharge Instructions Diet Discharge Diet: No restrictions DC O2, CPAP, BIPAP needs Home O2 Discharge instructions: No Dressing / Incision Discharge Activity: Return to Normal Activity, May Not Drive (while taking narcotic pain medications.) and May Shower May resume sexual activity in: 4-6 weeks Dressing / Incision Call your doctor if your incision/area has: Continuous Slow Oozing, Sudden Increased Bleeding, Increased Pain/ Swelling, Increased Redness and Foul Smelling Discharge Follow Up Care Please Follow Up With: Christen Swartz MD When: Call [phone] to make an appointment with your doctor in 6 weeks. If you had elevated blood pressure or 4th degree laceration, you will need to be seen in 2 weeks. Test Results: Test results from this visit will be discussed in further detail at your follow- up appointment, if applicable. Discharge Plan Admission Admit Date/Time: 11/09/24 03:32 Attending Provider: Christen Swartz Primary Care Provider: Devyn Lee Discharge Orders/Prescriptions Prescriptions: No Action citalopram 40 mg tablet 40 mg PO DAILY Qty: 30 12RF Unisom (doxylamine) 25 mg tablet 25 mg PO QHS PRN (Reason: sleep) ondansetron 4 mg tablet,disintegrating 4 mg PO Q8H PRN (Reason: nausea and vomiting) Qty: 60 3RF PNV cmb#95-ferrous fumarate-FA [] 28 mg iron- 800 mcg tablet 1 tab PO DAILY valacyclovir [Valtrex] 500 mg tablet 500 mg PO DAILY PRN (Reason: Herpes ) Qty: 30 3RF Referrals / Follow Up: Devyn Lee MD [Primary Care Provider] -
[2024-11-09] MEDS: Acetaminophen 500 MG Tablet 1000 MG PO ×3 (06:46→22:09)
[2024-11-09] MEDS: Benzocaine/Lanolin/Aloe Vera 85 GM Spray 1 SPRAY TOPICAL (08:19)
[2024-11-09] MEDS: Naproxen 500 MG Tablet PO ×2 (10:29→20:14)
[2024-11-09] MEDS: Citalopram 40 MG TABLET PO (22:05)
[2024-11-10 00:45] VITALS: BP 122/58; PULSE 84; RESP 17; TEMP 36.6; O2SAT 96
[2024-11-10 03:55] VITALS: BP 136/66; PULSE 73; RESP 16; TEMP 36.2; O2SAT 97
[2024-11-10] MEDS: Acetaminophen 500 MG Tablet 1000 MG PO (07:09)
--- NOTE | 2024-11-10 07:18 | PCM.PN.OB ---
Subjective Subjective Patient doing well without complaints. Tolerating PO. Ambulating and voiding without difficulty. feeding well. Denies chest pain, shortness of breath, calf pain/swelling, fevers, chills, lightheadedness. Objective Data Objective Data Vital Signs: Vital Signs Temp Pulse Resp BP Pulse Ox O2 Del Method 97.2 F L 73 16 136/66 H 97 Room Air 11/10/24 03:55 11/10/24 03:55 11/10/24 03:55 11/10/24 03:55 11/10/24 03:55 11/10/24 03:55 Oxygen Delivery Method Room Air Weight: 187 lb Body Mass Index (BMI) 34.2 Intake & Output: Intake and Output for Last 24 Hours 11/08/24 11/09/24 11/10/24 23:59 23:59 23:59 Intake Total 832.75 / 832.75 Output Total 500 / 500 Balance 332.75 / 332.75 Lab / Micro Data 11/09/24 03:40 ROS Constitutional Constitutional: Reports systems reviewed and no addt'l complaints, except as documented Cardiovascular Cardiovascular: Reports systems reviewed and no addt'l complaints, except as documented Respiratory/Chest Respiratory/Chest: Reports systems reviewed and no addt'l complaints, except as documented Gastrointestinal Gastrointestinal: Reports systems reviewed and no addt'l complaints, except as documented Physical Exam Const alert, oriented x3 and no apparent distress HEENT Head and Scalp: atraumatic Resp normal respiratory effort GI soft to palpation and non-tender Bimanual Exam - Vag & Uterus: uterus non-tender Uterus Palpation: uterus fundus firm (below Umbilicus) Assessment & Plan (1) Vaginal delivery: COMMENT: SM girl Sherry 38 weeks precipitous PLAN: Plan s/p PPD # 1 1. routine post delivery care 2. breast feeding- support given 3. rh positive 4. rubella immune
[2024-11-10 08:00] VITALS: BP 131/81; PULSE 79; RESP 16; TEMP 36.3; O2SAT 98
[2024-11-10 14:00] VITALS: BP 113/62; PULSE 80; RESP 16; TEMP 36.6; O2SAT 98
--- NOTE | 2024-11-11 09:29 | CASEMGMT ---
Social Work Assessment Labor and Delivery Unit Patient Address: [address] [place] [address] [address] [place] [address] Phone number: [phone] Date of Referral: 11/09/24 Time of Referral:? 1020 Referred By: Dr. Swartz Date of Intervention: ?? 11/10/24 Time of Intervention:? 1020 Reason for Referral:? hx of depression Sw completed chart review and acknowledges social work consult due to maternal mental health history. Sw presented to bedside and introduced self to mother of baby (TAYLER- Maryam) and father of baby (SERINA- Zeeshan). Sw explained reason for sw involvement and completed psychosocial assessment. History obtained from: medical records, MOB and FOB Household composition: Currently residing in the family household is SERINA LESTER, their 1 year old daughter: Yovani and baby when ready for discharge. Parents deny any housing concerns reporting their house is safe and secure. Patient's parent/guardian status:? ?Parents report that they were introduced to each other through mutual friends and have been together for 6 years. baby is second child to parents together. No concerns reported of domestic violence or intimate partner violence. Medical History: ?TAYLER is 29 year old female who is 4, para 1- now 2 following labor and delivery of . TAYLER received routine care during with [place]. TAYLER presented to hospital in active labor and delivered baby within an hour of admission. Baby was born at 38 weeks gestation on 11/09/24 via vaginal delivery. Baby girl, named Eli Francisco, was born weighing 7lb 11oz with apgars of 8 and 9 at one and five minutes of life, respectfully. TAYLER is breast feeding and states that baby will be followed by [facility]. Educational Status:? Both parents graduated from high school and TAYLER obtained her Associates degree. SERINA states that he has been diagnosed with ADHD and is prescribed vyvanse, this did cause him to struggle sporadically in school. Financial Status: Both parents are gainfully employed outside of the home. TAYLER works at [employer] and SERINA works for [employer]. Infant Supplies:?? All necessary baby supplies obtained, including: car seat, safe sleep space, clothes, diapers and wipes. Childcare/Caregiver(s):?MOB will be the primary caregiver to baby along with FOB. When both parents are working baby and sibling will be cared for by maternal and paternal grandmas. Transportation:?Both parents have their drivers license and reliable means of transportation, no barriers. Programs/Agencies Involved: ???Parents are not connected to any community resources or agencies that assist them financially as they are over income. Children Services/Legal Issues:???Parents deny prior children services involvement or legal history. No issues or concerns warranting referral to be made at this time. Behavioral Health Issues: ??Mental Health History:??FOB states that he has been diagnosed with ADHD and is prescribed vyvanse to help him manage his symptoms. MOB states that she has history of anxiety and depression and did experience depression after her first daughter was born. MOB states that she is prescribed citalopram to help her manage her symptoms by her OBGYN. MOB states that when she had her daughter she felt over stimulated, would be quick to anger and would yell at her . MOB states that she can tell a difference with her mental health and feels more prepared about what to expect going into this second period. MOB states that historically she has never had thoughts of hurting her baby, however as a young adult she did have thoughts of hurting herself. MOB states that this is not something that she sought treatment for, but has been mindful of since becoming a mom. ? Substance Use History:??Parents deny substance use prior to and during . Family History:??Parents deny family history of substance use or significant mental health diagnoses. ??? Drug Screens: ?No drug screens observed while completing chart review. ? Family/Social Stressors:?Parents deny any family issues, concerns or stressors. Parents were upbeat and pleasant. Parents express feeling excited that baby is here and anxious to be home as a family of four. Support Systems: MOB states that SERINA and her mom are her biggest supports. MOB states that if she were to struggle with her mental health she would feel comfortable talking to her mom. Depression/Shaken Baby/Safe Sleeping:? Sw educated parents on signs and symptoms of baby blues and depression and anxiety. MOB states that she has anxiety at baseline, but went untreated until she experienced rage/ anxiety/ depression. MOB states that she never had thoughts of hurting her self or her baby at that time, but does have history of thoughts of self harm as a young adult. MOB states that she never had a plan or intention, only thoughts. MOB completed [place] Depression Scale. Education and support provided. TAYLER is prescribed citalopram by her OBGYN and reports that although she used to not want to be someone who took medication, she is not opposed to it now because she is able to tell a difference with her mental health. FOB states that when MOB was struggling with when their first daughter was born he was able to recognize that she was struggling and he called maternal grandma and asked for her. Parents report that they will be better at communicating during this period. TAYLER states that she also feels comfortable talking to her OBGYN about her mental health symptoms. Parents were educated on safe sleep and shaken baby prevention. Parents express understanding. ASSESSMENT:? MOB and baby admitted following labor and delivery of . MOB with mental health history of anxiety and depression as well as depression and anxiety after her first daughter was born. TAYLER states that her medication (citalopram) has made a significant difference for her and she feels more prepared for this experience. MOB able to recognize that she now has two children under two and it may cause more stress/ anxiety managing two children this young. TAYLER states that she has a lot of support and has healthy and safe coping mechanisms. Parents were receptive and welcoming to sw. Parents were smiling and talkative while completing assessment. Parents observed to look at baby lovingly as she was asleep in bassinet. PLAN:? No other services requested or indicated. MOB and baby to be discharged when medically ready. Parents were provided literature regarding: signs and symptoms of baby blues and mood and anxiety disorders, Help Me Grow, shaken baby prevention, ABCs of safe sleep and a list of county resources that are available for them should any needs present themselves. Maria Luisa Perera, [employer], CABINET [employer]
== END 2024-11-10 15:45 | disposition home or self-care (01) | DRG 806 ==
LOC: WP 03:43
PROVIDERS: Admitting Provider Obstetrics & Gynecology; PCP Family Medicine; Referring Provider Obstetrics & Gynecology; Visit Provider Obstetrics & Gynecology
DX: O62.3 Precipitate labor (principal); Z37.0 Single live birth; O98.32 Other infections with a predominantly sexual mode of transmission complicating childbirth; O99.344 Other mental disorders complicating childbirth; A60.9 Anogenital herpesviral infection, unspecified; F32.A Depression, unspecified; F41.9 Anxiety disorder, unspecified; O70.0 First degree perineal laceration during delivery; O69.1XX0 Labor and delivery complicated by cord around neck, with compression, not applicable or unspecified; O75.89 Other specified complications of labor and delivery; Z3A.38 38 weeks gestation of pregnancy; Z87.891 Personal history of nicotine dependence; Z79.899 Other long term (current) drug therapy
CPT/HCPCS: 59025; 59050; 85025; 86780; 86850; 86900; 86901; 99221; G0378